=== PATIENT | female | born 1945 | race African-American/Black ===

== ENCOUNTER 2018-10-27 10:25 | Inpatient (IN) ==
[2018-10-27 09:31] LABS: BASO# 0.01 X1000 (0.0-0.2); BASO% 0.2 % (0.0-0.8); EOS# 0.01 X1000 (0.0-0.7); EOS% 0.2 % (0.0-10.0); HEMOGLOBIN 16.4 g/dL (12.0-16.0); IMM GRAN# 0.01 X1000 (0.0-0.04); IMM GRAN% 0.2 % (0.0-0.5); LYMPH# 0.75 X1000 (1.2-3.4); LYMPH% 13.9 % (20.5-51.1); MCH 34.1 PG (27-31); MCHC 34.2 g/dL (33-37); MCV 99.8 FL (81-99); MONO# 0.32 X1000 (0.11-0.59); MONO% 5.9 % (1.7-9.3); MPV 11.1 FL (7.4-10.4); NEUT# 4.31 X1000 (1.4-6.5); NEUT% 79.6 % (42.2-75.2); PLT 410 X1000 (130-400); RBC 4.81 XMIL (4.2-5.4); RDW 13.3 % (11.5-14.5); WBC 5.41 X1000 (4.8-10.8)
--- NOTE | 2018-10-27 10:07 | PROVIDER DOCUMENTATION ---
HPI-Abdominal Pain/GI Problem - General Chief Complaint: Abdominal Pain Stated Complaint: ABD PAIN Time Seen by Provider: 10/27/18 09:10 Source: patient Allergies/Adverse Reactions: Patient Allergies Allergy/AdvReac Type Severity Reaction Status Date / Time No Known Allergies Allergy Verified 10/27/18 09:11 - History of Present Illness-ABD Nature of Presenting Problems: Pt is 72 yo female, states lower abd pain started yesterday and has been constant since then. States vomited x 3-4 times. Denies diarrhea. Last BM was yesterday. Denies fever. No daily meds. No known pmh. Denies f/u/d. Abdominal Pain Onset Location: reports: RLQ (started in RLQ), generalized abdomen (now generalized pain) Severity in ED: reports: severe Onset/Duration: reports: other (yesterday) Timing: reports: still present Review of Systems - Adult - REVIEW OF SYSTEMS - ADULT Constitutional: denies: chills, fever Eyes: reports: no symptoms reported Ears, Nose, Mouth & Throat: reports: no symptoms reported Cardiovascular: reports: no symptoms reported Respiratory: reports: no symptoms reported Gastrointestinal: reports: abdominal pain, nausea, vomiting. denies: diarrhea Genitourinary: reports: no symptoms reported Musculoskeletal: reports: no symptoms reported Integumentary: reports: no symptoms reported Neurological: reports: no symptoms reported Psychiatric: reports: no symptoms reported Endocrine: reports: no symptoms reported Hematologic/Lymphatic: reports: no symptoms reported Allergic/Immunologic: reports: no symptoms reported All Other Systems: Reviewed and Negative Past History - Adult - PAST MEDICAL HISTORY-ADULT Review of Records: reports: Medications Reviewed, Social history reviewed & non- contributory. Physical Exam-General - PHYSICAL EXAM-ADULT Initial Vital Signs Reviewed: Yes (tachycardia, hypotensive) - CONSTITUTIONAL General Appearance: alert, moderate distress - EYES Eyes: PERRL/EOMI, pink conjunctivae - HEAD, EARS, NOSE, MOUTH & THROAT HENMT: normocephalic/atraumatic, moist mucous membranes - NECK Neck: supple - RESPIRATORY Respiratory: lungs clear, decreased breath sounds, increased rate - CARDIOVASCULAR Cardiovascular: no edema, no murmur, tachycardia - GASTROINTESTINAL (ABDOMEN) Abdominal Exam: abnormal bowel sounds (decreased bs), guarding, rigid, tenderness - MUSCULOSKELETAL Peripheral Pulses: radial (R): 2+, radial (L): 2+ - SKIN Integumentary: normal color, normal turgor, warm/dry - NEUROLOGIC Neurologic: grossly normal - PSYCHIATRIC Psych/Mental Status: normal mood/affect, normal thought content, normal thought process, oriented x 3 Progress - PLAN OF CARE/RESULTS Progress/Plan/Lab Results: Vital Signs - 8 hr 10/27/18 09:05 10/27/18 09:50 Temperature 97.6 F Pulse Rate 124 H 109 H Respiratory Rate 18 33 H Blood Pressure 96/64 89/71 O2 Sat by Pulse Oximetry 96 94 L Laboratory Results - last 24 hr 10/27/18 09:22 WBC 5.41 RBC 4.81 Hgb 16.4 H Hct 48.0 H MCV 99.8 H MCH 34.1 H MCHC 34.2 RDW Std Deviation 13.3 Plt Count 410 H MPV 11.1 H Immature Gran % (Auto) 0.2 Neut % (Auto) 79.6 H Lymph % (Auto) 13.9 L Ector % (Auto) 5.9 Eos % (Auto) 0.2 Baso % (Auto) 0.2 Immature Gran # (Auto) 0.01 Neut # (Auto) 4.31 Lymph # (Auto) 0.75 L Ector # (Auto) 0.32 Eos # (Auto) 0.01 Baso # (Auto) 0.01 Orders Category Date Time Status Saline Loc DIRECTED Care 10/27/18 09:12 Active NPO Diet 10/27/18 09:12 Active CHEST-1 VIEW [RAD] Stat Exams 10/27/18 09:[address] ABDOMEN/PELVIS W/O CONTRAST [CT] Stat Exams 10/27/18 09:27 Taken AMYLASE [CHEM] Stat Lab 10/27/18 09:22 Received BLOOD CULTURE [BLDCUL] Stat Lab 10/27/18 09:28 Ordered CBC WITH DIFF [HEME] Stat Lab 10/27/18 09:33 Ordered CBC WITH ELECTRONIC DIFF [HEME] Stat Lab 10/27/18 09:22 Completed CK PROFILE [SP CHEM] Stat Lab 10/27/18 09:33 Ordered COMPREHENSIVE METABOLIC PANEL [CHEM] Stat Lab 10/27/18 09:22 Received LACTATE, PLASMA [CHEM] Q3H Lab 10/27/18 09:45 Uncollected LACTATE, PLASMA [CHEM] Q3H Lab 10/27/18 12:45 Uncollected LACTATE, PLASMA [CHEM] Q3H Lab 10/27/18 15:45 Uncollected LACTATE, PLASMA [CHEM] Stat Lab 10/27/18 09:31 Uncollected LIPASE [CHEM] Stat Lab 10/27/18 09:22 Received PROTIME WITH INR [COAG] Stat Lab 10/27/18 09:33 Ordered PTT [COAG] Stat Lab 10/27/18 09:33 Ordered TROPONIN T Stat Lab 10/27/18 09:33 Ordered TYPE & SCREEN [BBK] Stat Lab 10/27/18 09:22 Received UA NIMS W/REFLEX CULT PL [URINALYSIS] Stat Lab 10/27/18 09:[address] W/POSS RFLX CULT [URINALYSIS] Stat Lab 10/27/18 09:12 Uncollected 0.9% Sodium Chloride Inj [Ns] 1,000 ml Med 10/27/18 09:28 Active IV 999 mls/hr 0.9% Sodium Chloride Inj [Ns] 500 ml Med 10/27/18 09:28 Discontinued IV 999 mls/hr Lactated Ringers Inj [Lr] 1,000 ml Med 10/27/18 09:26 Active IV 999 mls/hr Morphine Med 10/27/18 09:25 Discontinued 4 mg IV NOW ONE Ondansetron [Zofran] Med 10/27/18 09:25 Discontinued 4 mg IV NOW ONE Piperacillin/Tazobactam [Zosyn] 4.5 gm Med 10/27/18 09:28 Active 0.9% Sodium Chloride Inj [Ns] 100 ml IV NOW EKG [EKG] Stat Ther 10/27/18 09:29 Ordered d/w Dr. Richard, in to see pt, agrees with plan. radiologist called with verbal report of free air and ascites on CT. Dr. Richard d/w Dr. Slater and admitted to hospitalist. Result Diagrams: 10/27/18 09:22 - REASSESSMENT Reassessment #1 Time Reassessed: 10:16 Status: improving (but still hurting. Will administer additional morphine for ambulance ride) Departure - Departure Date of Disposition Decision: 10/27/18 Time of Disposition Decision: 10:07 DIAGNOSIS: Perforated abdominal viscus Disposition: ADMITTED INPATIENT 09 Certified Medical Emergency: Emergent Condition: Critical Referrals and Follow-Ups: None,PCP [Primary Care Provider] - - Critical Care Note This patient required my direct & personal management of CC.: Yes Total Time (mins): 35 (multiple visists to bedside, discussions with 3 separate physicians, management of shock and sepsis.) Critical Care Statement: This patient required my direct personal management to treat or rule out processes, the absence of which, could potentiallly result in sudden, clinically significant life or limb threatening deterioration. Attestation - Physician/ ELOISE Attestation Advanced Practice Provider:: Roseline Robledo The physician spent face to face time with patient:: Yes Advanced Practice Provider documentation review:: Supervising physician onsite and consulted in the evaluation and care of this patient. The physician did have a face to face encounter with the patient.
--- NOTE | 2018-10-27 10:08 | Diag Imaging Result Doc PS360 ---
EXAM: CT ABDOMEN/PELVIS W/O CONTRAST HISTORY: lower abdominal pain/tenderness TECHNIQUE: Stone search CT. COMPARISON: None. FINDINGS: Evaluation of the solid visceral organs and bowel is limited by lack of enteric and IV contrast. There is moderate ascites and pneumoperitoneum. This is consistent with hollow viscus perforation. There is moderate soft tissue stranding adjacent to the stomach and perforated peptic ulcer is considered. Bilateral pleural effusions and bibasilar airspace disease. There is cholelithiasis. There is atherosclerotic calcification within the aorta and major branches. No hydronephrosis. Punctate left nephrolithiasis There is diverticulosis. No evidence for diverticulitis. No small bowel distention. Normal appendix. Uterus is surgically absent. Marked degenerative arthropathy lumbar spine with spondylolisthesis of L4 on L5. No compression deformities are appreciated. This report was discussed with Dr. Richard at 10:00am ead back verification. IMPRESSION: 1.Moderate pneumoperitoneum. Concentration within the upper abdomen. Consider perforated peptic ulcer. 2.Moderate free fluid within the abdomen. 3.Exam limited by lack of IV and oral contrast. 4.Cholelithiasis. This exam was performed using automated exposure control, adjustment of mA or kV according to patient size, and/or use of iterative reconstruction technique. Electronically signed by Khadijah Nice 10/27/2018 10:06 AM
--- NOTE | 2018-10-27 10:14 | Diag Imaging Result Doc PS360 ---
EXAM: CHEST-1 VIEW HISTORY: possible sepsis TECHNIQUE: PA and Lateral chest x-ray COMPARISON: None. FINDINGS: Lung volumes are reduced with bibasilar atelectasis. There is gas beneath the right hemidiaphragm shown to represent pneumoperitoneum on recent CT. The cardiomediastinal silhouette is within normal limits. The pulmonary vasculature is not congested. No pneumothorax is appreciated. IMPRESSION: Pneumoperitoneum. Reduced lung volumes. Bibasilar atelectasis. This report was discussed with on 10/27/2018 at 10:00 AM with read back verification. Electronically signed by Khadijah Nice 10/27/2018 10:11 AM
[~2018-10-27 10:25] MED LIST: DILAUDID IV PRN; LEVOPHED 8 MG in D5 1/2 NS 250 ML IV SCH; LR 1,000 ML IV ONE; MORPHINE IV ONE; NS 1,000 ML IV ONE; NS 1,000 ML IV SCH; NS 500 ML IV ONE; VANCOMYCIN IV PER PHARMACY MISC SCH; ZOFRAN IV ONE; ZOSYN 4.5 GM in NS 100 ML IV ONE
[2018-10-27 10:32] LABS: ALBUMIN 4.2 g/dL (3.5-5.0); CALCIUM 9.5 mg/dL (8.8-10.2); CREATININE 2.7 mg/dL (0.5-0.9); POTASSIUM 2.7 mmol/L (3.5-5.1); TOTAL BILIRUBIN 0.9 mg/dL (0.20-1.00); TOTAL PROTEIN 7.4 g/dL (6.3-8.3)
[2018-10-27 10:34] LABS: BASO# 0.01 X1000 (0.0-0.2); BASO% 0.2 % (0.0-0.8); EOS# 0.01 X1000 (0.0-0.7); EOS% 0.2 % (0.0-10.0); HEMATOCRIT 48.8 % (37.0-47.0); HEMOGLOBIN 16.3 g/dL (12.0-16.0); IMM GRAN# 0.01 X1000 (0.0-0.04); IMM GRAN% 0.2 % (0.0-0.5); LYMPH# 0.58 X1000 (1.2-3.4); LYMPH% 12.5 % (20.5-51.1); MCH 33.5 PG (27-31); MCHC 33.4 g/dL (33-37); MCV 100.2 FL (81-99); MONO# 0.31 X1000 (0.11-0.59); MONO% 6.7 % (1.7-9.3); NEUT# 3.72 X1000 (1.4-6.5); NEUT% 80.2 % (42.2-75.2); PLT 374 X1000 (130-400); RBC 4.87 XMIL (4.2-5.4); RDW 13.2 % (11.5-14.5); WBC 4.64 X1000 (4.8-10.8)
[2018-10-27 10:40] LABS: INR 1.13; PROTIME 15.1 Seconds (11.0-16.0)
[2018-10-27 10:41] LABS: PTT 29.7 Seconds (22.3-41.8)
[2018-10-27] MEDS ORDERED: VANCOMYCIN IV PER PHARMACY MISC SCH (10:45)
[2018-10-27] MEDS ORDERED: DILAUDID IV PRN (10:57)
--- NOTE | 2018-10-27 11:09 | HISTORY AND PHYSICAL ---
PRIMARY CARE PHYSICIAN: None. CHIEF COMPLAINT: Generalized abdominal pain that began yesterday. Also, she had vomiting 3 to 4 times but no diarrhea. HISTORY OF PRESENTING ILLNESS: This is a 72-year-old female who presents to [facility] ER with complaints of generalized abdominal pain that began yesterday. She states that she has had vomiting 3 to 4 times, but no diarrhea. Workup in the emergency room showed an abdomen and pelvic CT with findings of moderate ascites and pneumoperitoneum. This is consistent with a hollow viscus perforation, moderate soft tissue stranding adjacent to the stomach and perforated peptic ulcer is considered. There is also cholelithiasis so she will be admitted to the intensive care unit at [facility], but patient will first go to surgery via Dr. Slater, general surgeon today. Then, she will be admitted after her surgical case. PAST MEDICAL HISTORY: None. PAST SURGICAL HISTORY: Hysterectomy and a right hand surgery. FAMILY HISTORY: Reviewed and noncontributory. SOCIAL HISTORY: She currently lives with her . Denies any tobacco, alcohol or illicit drug use. ALLERGIES: No known drug allergies. HOME MEDICATIONS: She does not take any medications on a routine basis at this time. LABORATORY DATA: White blood cell count of 5.41, hemoglobin 16.4, hematocrit 48 and platelets 410,000. Chest x-ray showed pneumoperitoneum reduced lung volumes, and bibasilar atelectasis. CT of the abdomen and pelvis showed an impression of 1) moderate pneumoperitoneum concentration within the upper abdomen. Consider perforated peptic ulcer. 2) Moderate free fluid within the abdomen. 3) Cholelithiasis. Pending labs at this moment include an amylase, CK profile, CMP, plasma lactate, lipase, PT with INR, PTT, troponin, type and screen and a urinalysis with reflex. They have all been received but are pending in the lab at this time. REVIEW OF SYSTEMS: She denied any fever, chills, blurred vision, or dizziness. She denied any chest pain, coughing, shortness of breath. She was positive for generalized abdominal pain, and vomiting times 3 to 4 yesterday and today with nausea. Denied any constipation. She states her last bowel movement was yesterday. Denied any diarrhea. Denied any burning or hurting with urination. PHYSICAL EXAMINATION: VITAL SIGNS: On arrival, temperature 97.6 degrees, pulse 124, respirations 18, blood pressure 96/64, and saturating 96% on room air. Currently, blood pressure is up to 150/87 and has received a total of 1 L of LR and 1 L of normal saline. HEENT: Normocephalic, atraumatic. Normal ENT inspection. Oropharynx and nares are clear. Eyes: Pupils are equal, round, reactive to light and accommodation. Extraocular movements are intact. NECK: Normal inspection. Normal range of motion. LUNGS: Clear to auscultation bilaterally with equal lung expansion and chest wall movement. HEART: Regular rate and rhythm. No murmurs, rubs, or gallops. She was noted to be tachycardic on arrival. This has improved after fluid resuscitation. ABDOMEN: Firm distended, rigid, tender to touch with guarding. Absent bowel sounds are noted at this time x4 quadrants. MUSCULOSKELETAL: She has 5/5 strength x4 extremities. NEUROLOGICAL: Cranial nerves 2-12 appear grossly intact. ASSESSMENT: 1. Moderate pneumoperitoneum. 2. Perforated abdomen viscus most likely a peptic ulcer perforation. 3. Hypotension. PLAN: She is being transferred to the [facility]. We will go directly to surgery via Dr. Slater. She then will be admitted to the intensive care unit. Held NPO. Labs as stated earlier are still pending. She has got Dilaudid 1 mg IV q.3 hours p.r.n. She was given a dose of this while I was at the bedside. She has a Levophed infusing per protocol for her hypotension, meropenem 1 gram IV q. 8. After her boluses have infused, she will have normal saline at 125 mL an hour. Further orders after seen by attending and by the surgery consultant, and status post her surgery. Dictated by MAREK Gaming for Manuel Cramer MD Addendum: Patient seen and examined by myself. Agree with MAREK note. It reflects my assessment and plan. Patient is being admitted to hospital for abdominal pain and ER found out she has pneumoperitoneum so Surgery was consulted and they recommend admit this patient under hospitalist service and transfer this patient urgently to [facility] for surgical intervention. Will place her on antibiotics and vasopressors and after surgery she will go to ICU. cc: MAREK Gaming, MD [facility]
[2018-10-27] MEDS ORDERED: QUELICIN (DOSE) ONE (11:55)
[2018-10-27] MEDS ORDERED: ZOFRAN ONE (11:55)
[2018-10-27] MEDS ORDERED: FENTANYL ONE (11:55)
[2018-10-27] MEDS ORDERED: SODIUM CHLORIDE 0.9% 10 ML ONE (11:55)
[2018-10-27] MEDS ORDERED: NORCURON ONE (11:55)
[2018-10-27] MEDS ORDERED: XYLOCAINE-MPF 2% ONE (11:55)
--- NOTE | 2018-10-27 12:33 | HISTORY AND PHYSICAL ---
HISTORY OF PRESENT ILLNESS: Ms Sandi Cadet is a 72-year-old black female, who presented to [facility] with a 24-hour history of abdominal pain. She describes the pain as diffuse and severe. It began yesterday. She underwent a CT scan of her abdomen and pelvis as part of her evaluation that documented free air and fluid intra-abdominally, and she was transferred from [facility] to [facility] for surgical care. PAST MEDICAL HISTORY: She has had surgery on her right hand. She has otherwise been healthy. MEDICATIONS: None. ALLERGIES: None. SOCIAL HISTORY: She is retired. Her daughter works in our hospital system. She does not smoke or drink. REVIEW OF SYSTEMS: A 14-point review of systems was performed and was essentially negative except for the history of present illness. FAMILY HISTORY: Noncontributory. PHYSICAL EXAMINATION: GENERAL: Ms. Cadet is tachycardic. She has an acute abdomen. HEENT: No jaundice. No oral lesions. NECK: No cervical or supraclavicular lymphadenopathy. HEART: Her heart has a regular rate. LUNGS: Clear. GASTROINTESTINAL: Her abdomen was tightly distended and tender throughout. She had no evidence of hernia. No palpable mass. No previous scar. MUSCULOSKELETAL: She had bilateral costovertebral tenderness. RECTAL AND VAGINAL: Exams were not performed. EXTREMITIES: She does have palpable peripheral pulses. No peripheral edema. NEUROLOGICAL: She is awake and alert with no focal deficit. DIAGNOSTIC STUDIES: I reviewed the CT scan with our radiologist, Dr. Antonio Saenz. It does not appear that she had a significant amount of diverticulitis. She does have free air and fluid. The etiology of her ruptured bowel is unclear. IMPRESSION: Acute abdomen with ruptured viscus. PLAN: Urgent exploratory laparotomy with indicated procedures. I discussed it with the patient's daughter in holding. She understands this is major surgery and it is urgent and the patient may require an ostomy bag and hospitalization in the ICU. cc: Sarah Slater MD
[2018-10-27] MEDS ORDERED: DEPO-MEDROL ONE (13:00)
[2018-10-27] MEDS: MORPHINE ONE ×5 (13:55→14:44)
--- NOTE | 2018-10-27 14:09 | OPERATIVE NOTE ---
PROCEDURE DATE: 10/27/2018 PREOPERATIVE DIAGNOSIS: Acute abdomen. POSTOPERATIVE DIAGNOSIS: Perforated duodenal ulcer. PRINCIPAL PROCEDURE: Open Simba patch repair of perforated duodenal ulcer. SURGEON: Sarah Slater MD. ANESTHESIA: General. ESTIMATED BLOOD LOSS: 100 mL. DRAINS: None. INDICATIONS: Sandi Cadet is a 72-year-old, black female who has a 12-hour history of abdominal pain. She presented to [facility]. As part of her evaluation, she underwent a CT scan of her abdomen and pelvis which documented free air and free fluid intra- abdominally. She was sent to [facility] for surgical care. FINDINGS: She had gross intra-abdominal contamination of stomach and duodenal contents. She had a fairly large perforated anterior duodenal ulcer involving the duodenal bulb. We performed a Simba patch closure of this ulcer using a flap of greater omentum and then we took a lot of time to irrigate the abdomen thoroughly to remove all intra-abdominal contamination. DESCRIPTION OF PROCEDURE: The patient was brought to the operating room, placed supine, received general anesthesia, and was intubated. Her abdomen was prepped and draped within a sterile field. We used an Ioban on the skin. Initially, I made a periumbilical incision with a 15 blade scalpel. It was carried down through the skin and subcutaneous tissue to the midline fascia, which we incised using the cautery and carefully entered the abdomen. As we entered the abdomen, there was no foul smell of the free intra-abdominal fluid, which there was a lot of. It was green and thick. We felt this represented more of a perforation in the upper abdomen than in the lower abdomen. We extended this incision into an upper midline incision using the 10 blade scalpel and the cautery. I used a Fadumo for self-retaining retraction. I also had handheld retraction. We identified the perforated anterior duodenal ulcer. It measured about 1 cm big. There was gross intra-abdominal contamination which we removed using suction. I closed this ulcer using a Simba patch. I used 2-0 silk stitches and placed the stitch on either side of the ulcer. I used three stitches along the ulcer's length transversely. Then I placed this apron of omentum which I created using the LigaSure. I placed it over the perforated ulcer. Then I tied the 2-0 silk ties over the omentum so that it was held against the perforated ulcer as described as a Simba patch. I placed two other 2-0 silk stitches on either edge of the omentum, again just to further tack it down against the ulcer. We felt there was no leakage from the ulcer with this Simba patch. We were happy that the fat was viable and was secured against the ulcer. We took a lot of time to thoroughly irrigate the abdomen, all four quadrants, with warm irrigation and the warm irrigation was removed with suction. We placed the bowel back in an anatomically correct position. The NG tube was checked and its position in the stomach was satisfactory. I used internal #1 Vicryl stitches, approximately five along the length of the midline wound. I closed the fascia with a running #1 Maxon stitch and then I tied these internal retention Vicryl sutures over the closed midline fascia for extra support of closure. I thoroughly irrigated the midline wound and closed the skin with a skin clip bond clerk, and dressings were applied. Plans are for her to go to the ICU with an NG tube in place and also a Paz catheter tube in place for ongoing resuscitation and critical care. cc: Sarah Slater MD
[2018-10-27] MEDS ORDERED: NS 1,000 ML ONE (14:55)
[2018-10-27] MEDS ORDERED: OFIRMEV 1000 MG/ISOTONIC SOLN 1,000 MG/100 ML BOTTLE ONE (15:45)
[2018-10-27] MEDS: MERREM 1 GM in NS 50 ML IV SCH ×2 (16:42→17:48)
[2018-10-27] MEDS: NS 1,000 ML IV SCH ×2 (16:43→18:17)
[2018-10-27] MEDS ORDERED: MORPHINE IV PRN (16:44)
[2018-10-27] MEDS ORDERED: SODIUM CHLORIDE 0.9% INJ PRN (16:47)
[2018-10-27] MEDS ORDERED: PHENERGAN IV PRN (16:47)
[2018-10-27 17:16] LABS: URINE SOURCE CATH
[2018-10-27 17:18] LABS: BILIRUBIN URINE NEGATIVE (NEGATIVE); BLOOD URINE MODERATE (NEGATIVE); COLOR STRAW; GLUCOSE URINE TRACE mg/dL (NEGATIVE); KETONE URINE NEGATIVE (NEGATIVE); LEUKOCYTES URINE NEGATIVE (NEGATIVE); NITRITE URINE NEGATIVE (NEGATIVE); PROTEIN URINE 30 mg/dL (NEGATIVE); SP GRAVITY URINE 1.007; TURBIDITY URINE CLEAR (CLEAR); UR EPITHELIAL CELLS <10 /HPF (<10); URINE BACTERIA NEGATIVE /HPF; URINE RBC <10 /HPF (<10); URINE WBC <10 /HPF (<10); UROBILINOGEN URINE NORMAL (NORMAL)
[2018-10-27] MEDS: OFIRMEV 1000 MG/ISOTONIC SOLN 1,000 MG/100 ML BOTTLE IV SCH ×2 (17:40→23:02)
[2018-10-27] MEDS: NEXIUM IV SCH (17:54)
[2018-10-27] MEDS: DIPRIVAN 1% 1,000 MG/100 ML BOTTLE IV SCH (18:24)
[2018-10-27] MEDS: KEFZOL 1 GM/D5W 1 GM/50 ML IVPB IV SCH (20:02)
[2018-10-27] MEDS: LEVOPHED 8 MG in D5 1/2 NS 250 ML IV SCH (22:00)
--- NOTE | 2018-10-27 22:15 | PULMONOLOGY CONSULTATION ---
DATE: 10/27/2018 REQUESTING PHYSICIAN: Dr. Bakari Slater. REASON FOR CONSULTATION: Critically ill patient following surgical repair of a perforated ulcer. HISTORY OF PRESENT ILLNESS: Ms. Cadet is a 72-year-old white female with no chronic medical history listed and no chronic medications, who presented to [facility] Emergency Room with a greater than 12 hour history of abdominal pain with nausea and vomiting. The patient had evidence of peritonitis on clinical exam. CT scan of the abdomen and pelvis revealed a pneumoperitoneum with free fluid in the abdomen and cholelithiasis. The patient was transferred to the [facility] and was taken to the operating room by Dr. Slater. The patient did receive volume resuscitation today equaling almost 8 L. In the operating room, Dr. Slater found a perforated duodenal ulcer with intra-abdominal contamination of gastric and duodenal contents. A Simba patch repair of the duodenal ulcer was performed and extensive irrigation of the abdominal cavity followed. The patient is now transferred back to the ICU on mechanical ventilation. PAST MEDICAL HISTORY: 1. Hysterectomy. 2. Status post right hand surgery. 3. No chronic medical history/medications. SOCIAL HISTORY: No tobacco use. Nursing intake reports rare alcohol use. FAMILY HISTORY: Noncontributory to current presentation. REVIEW OF SYSTEMS: Cannot be obtained. PHYSICAL EXAMINATION: General: Reveals a well-developed, well-nourished female, who appears in slight pain on mechanical ventilation. Vital signs: Blood pressure 90/60, heart rate 117, respiratory rate 15, oxygen saturation 98%. HEENT: Pupils are equal and reactive. Oropharynx appears clear. Neck: Supple. Chest: Reveals crackles bilaterally. Cardiac Exam: S1-S2. Abdomen: Soft with surgical dressings in place. Extremities: Reveal trace to 1+ peripheral edema. LABORATORIES: Sodium 145, potassium 2.7, chloride 100, bicarbonate 16, anion gap 29, BUN 24, creatinine 2.7, glucose 306. Amylase 170, lipase 468. White blood count 4.64, hemoglobin 16.3, platelet count 374,000. Chest x-ray reveals pneumoperitoneum with bibasilar atelectasis. IMPRESSION: Relatively healthy 72-year-old female who presents to the hospital with duodenal perforation. She has had abdominal pain for a prolonged period of time. She had gross contamination of the abdomen. She has peritonitis. She has acute renal failure. She has acute hypoxemic respiratory failure. She has relative leukopenia given her illness. Her blood pressure is marginal and she has received significant resuscitation. RECOMMENDATIONS: 1. Continue full ventilatory support. She has had significant resuscitation and may require vasopressors. 2. Continue Zosyn for gross contamination of the abdomen. 3. Continue gastric acid suppression. 4. We will initiate sliding scale insulin. The patient did have a glucose over 300 in the emergency room. 5. Agree with deep vein thrombosis prophylaxis. 6. Additional recommendations pending hospital course. TIME SPENT WITH CRITICAL CARE: One hour. cc: MD Sarah Judd MD
[2018-10-27] MEDS: HUMULIN R SUBQ SCH (22:27)
[2018-10-27] MEDS: ZOSYN 2.25 GM in NS 50 ML IV SCH (23:01)
[2018-10-28] MEDS: NS 1,000 ML IV SCH ×3 (01:22→12:53)
[2018-10-28] MEDS: HUMULIN R SUBQ SCH ×6 (01:42→22:01)
[2018-10-28] MEDS: KEFZOL 1 GM/D5W 1 GM/50 ML IVPB IV SCH (01:44)
[2018-10-28 04:40] LABS: ALLEN TEST YES; BE -3.8 mmoll (-3.0-3.0); BLOOD TYPE ARTERIAL; HCO3-(ACT) 21.9 mmoll (20.0-26.0); METHB 1.8 % (0.0-1.5); O2HB 95.2 % (95.0-99.0); PCO2(98.6) 26 mmHg (35-45); PO2(98.6) 118 mmHg (60-100); SAMPLE BLOOD; SAO2 98.7 % (95.0-100.0); SRATE 15 BPM; THB 13.3 g/dL (11.5-17.4); TVOL 600 mL; pH(98.6) 7.46 (7.35-7.45)
[2018-10-28 04:43] LABS: MODALITY VENTILATOR
[2018-10-28] MEDS: SODIUM CHLORIDE 0.9% INJ SCH (04:44)
[2018-10-28] MEDS: NEXIUM IV SCH ×2 (04:45→17:18)
[2018-10-28] MEDS: ZOSYN 2.25 GM in NS 50 ML IV SCH ×4 (04:45→23:15)
[2018-10-28] MEDS: OFIRMEV 1000 MG/ISOTONIC SOLN 1,000 MG/100 ML BOTTLE IV SCH ×4 (04:46→23:16)
[2018-10-28 05:45] LABS: BASO# 0.03 X1000 (0.0-0.2); BASO% 0.3 % (0.0-0.8); EOS# 0.17 X1000 (0.0-0.7); EOS% 1.9 % (0.0-10.0); HEMOGLOBIN 13.7 g/dL (12.0-16.0); IMM GRAN# 0.06 X1000 (0.0-0.04); IMM GRAN% 0.7 % (0.0-0.5); LYMPH# 1.59 X1000 (1.2-3.4); LYMPH% 18.1 % (20.5-51.1); MCH 33.7 PG (27-31); MCHC 35.1 g/dL (33-37); MCV 96.1 FL (81-99); MONO# 0.35 X1000 (0.11-0.59); MPV 11.9 FL (7.4-10.4); NEUT# 6.58 X1000 (1.4-6.5); PLT 227 X1000 (130-400); RBC 4.06 XMIL (4.2-5.4); RDW 12.7 % (11.5-14.5); WBC 8.78 X1000 (4.8-10.8)
[2018-10-28 06:04] LABS: PHOSPHORUS 3.2 mg/dL (2.7-4.5)
[2018-10-28 06:06] LABS: ALB/GLOB RATIO 0.7; CALCIUM 7.6 mg/dL (8.8-10.2); CREATININE 3.3 mg/dL (0.5-0.9); POTASSIUM 3.5 mmol/L (3.5-5.1); TOTAL BILIRUBIN 0.51 mg/dL (0.20-1.00)
[2018-10-28] MEDS: DIPRIVAN 1% 1,000 MG/100 ML BOTTLE IV SCH ×3 (06:38→20:04)
[2018-10-28] MEDS ORDERED: MAGNESIUM SULFATE 2 GM/S.W.I. 2 GM/50 ML IVPB IV ONE (06:57)
--- NOTE | 2018-10-28 06:59 | Diag Imaging Result Doc PS360 ---
EXAM: CHEST-PORTABLE 10/28/2018 HISTORY: respiratory failure TECHNIQUE: AP portable at 0535 COMMENT: There is an endotracheal tube with its tip slightly below the thoracic inlet and an NG tube which passes below the diaphragm presumably into the distal stomach or duodenum. There is retrocardiac opacity which was not present on 10/27/2018. There is platelike atelectasis in the lingula which was previously present. IMPRESSION: Worsened atelectasis versus pneumonia particularly in the left lower lobe. Electronically signed by Jose Ledbetter 10/28/2018 6:57 AM
--- NOTE | 2018-10-28 07:30 | PROGRESS NOTE ---
DATE: 10/28/2018 SUBJECTIVE: Ms Sandi Cadet is a 72-year-old, black female who is now postop day 1 from Simba patch closure of a perforated duodenal ulcer. She had gross intra-abdominal contamination at the time of surgery. After surgery, she remained intubated and now is hospitalized in the ICU. She is awake but she has made no urine overnight. She has an NG tube and Paz catheter in place. OBJECTIVE: Her heart rate is 119, blood pressure 108/89, O2 saturation 99% and she is on the ventilator minimal settings. She is on assist control of 15, 40% FiO2, 600 tidal volume +5 of PEEP. Her arterial blood gas is pH of 7.46, CO2 of 26, PaO2 of 118. She has a base deficit of 3.8 and a lactate of 3.4. Chest x-ray shows atelectasis left lower lobe. Her white blood cell count 8, hematocrit is 39%. Her BUN and creatinine are 33 and 3.3 and that is elevated from 24 and 2.5. She has not had much out of her NG tube. Her upper midline incision is dressed. Her abdomen is distended but not tightly so, and she is awake and cooperative. She has required IV Levophed to support her blood pressure overnight. She is on IV Zosyn because of intra-abdominal contamination. PLAN: She is in acute renal failure without making any urine. We will decrease her IV fluids. She is already on renal dose Zosyn. We will try to wean her Levophed. Her ventilator per Dr. Engle. We will leave her NG tube in place and Paz catheter. She is on IV Nexium. cc: Sarah Slater MD
[2018-10-28] MEDS: LOVENOX SUBQ SCH (08:31)
[2018-10-28 13:25] LABS: CALCIUM 7.4 mg/dL (8.8-10.2); CREATININE 3.2 mg/dL (0.5-0.9); MAGNESIUM 1.7 mg/dL (1.5-2.7)
[2018-10-28] MEDS ORDERED: D50W SYRINGE IV ONE (13:42)
[2018-10-28] MEDS ORDERED: HUMULIN R SUBQ ONE (13:43)
[2018-10-28] MEDS: LEVOPHED 8 MG in D5 1/2 NS 250 ML IV SCH (15:30)
--- NOTE | 2018-10-28 18:20 | PULMONOLOGY PROGRESS NOTE ---
DATE: 10/28/2018 SUBJECTIVE: The patient's sedation was placed on hold. She does follow commands. She does start to breathe in a rapid shallow manner due to pain and weakness. OBJECTIVE: Vital signs: The patient is afebrile for the last 24 hours. Blood pressure 99/70, heart rate 114 respiratory rate 15, oxygen saturation 99%. HEENT: Pupils are equal and reactive. Oropharynx appears clear, but evaluation is limited with endotracheal tube in place. Neck: Is supple. Chest: Reveals crackles bilaterally. Cardiac exam: S1, S2. Abdomen: Mildly distended and tender. Extremities: Without edema. LABORATORIES: Chest x-ray reveals atelectasis at the left base. White blood count 8.78, hemoglobin 13.7, platelet count 227,000. Sodium 142, potassium 3.5, chloride 107, bicarbonate 17, BUN 33, creatinine 3.3, magnesium 1.0. Arterial blood gas reveals a pH 7.46, pCO2 of 26, PO2 of 118 with a lactate of 3.4. IMPRESSION: 1. A 72-year-old with acute hypoxemic respiratory failure. 2. Septic shock. 3. Status post repair of a perforated duodenal ulcer with gross intra-abdominal contamination. 4. Acute renal failure. DISCUSSION: A 72-year-old with problems outlined above. She has failed a weaning trial this morning. Her ventilatory support will be restarted and she will be re-evaluated for weaning again tomorrow morning. The case was discussed with her . He is aware that she may require hemodialysis given the acute renal failure. PLAN: 1. Continue full ventilatory support and re-evaluate weaning tomorrow. 2. Continue broad-spectrum antibiotics. 3. Continue vasopressor support. 4. Continue gastric acid suppression. 5. Continue deep vein thrombosis prophylax. TIME SPENT IN CRITICAL CARE MANAGEMENT: 30+ minutes. cc: MD Sarah Judd MD
[2018-10-29] MEDS: NS 1,000 ML IV SCH (02:02)
[2018-10-29] MEDS: HUMULIN R SUBQ SCH ×6 (02:02→20:49)
[2018-10-29] MEDS ORDERED: D50W SYRINGE IV ONE ×2 (02:12→08:00)
[2018-10-29] MEDS: DIPRIVAN 1% 1,000 MG/100 ML BOTTLE IV SCH (03:20)
[2018-10-29 04:25] LABS: ALLEN TEST YES; BE -7.3 mmoll (-3.0-3.0); BLOOD TYPE ARTERIAL; HCO3-(ACT) 19.2 mmoll (20.0-26.0); METHB 1.1 % (0.0-1.5); O2HB 97.1 % (95.0-99.0); PCO2(98.6) 29 mmHg (35-45); PO2(98.6) 119 mmHg (60-100); SAMPLE BLOOD; SAO2 99.7 % (95.0-100.0); SRATE 12 BPM; THB 12.3 g/dL (11.5-17.4); TVOL 600 mL; pH(98.6) 7.37 (7.35-7.45)
[2018-10-29 04:26] LABS: MODALITY VENTILATOR
[2018-10-29] MEDS: ZOSYN 2.25 GM in NS 50 ML IV SCH ×4 (05:26→22:49)
[2018-10-29] MEDS: OFIRMEV 1000 MG/ISOTONIC SOLN 1,000 MG/100 ML BOTTLE IV SCH ×4 (05:27→22:49)
[2018-10-29] MEDS: NEXIUM IV SCH ×2 (05:29→17:04)
[2018-10-29 06:15] LABS: HEMATOCRIT 35.1 % (37.0-47.0); MCH 34.1 PG (27-31); MCHC 34.2 g/dL (33-37); MCV 99.7 FL (81-99); MPV 11.9 FL (7.4-10.4); RBC 3.52 XMIL (4.2-5.4); RDW 13.3 % (11.5-14.5); WBC 10.37 X1000 (4.8-10.8)
[2018-10-29 06:56] LABS: ALB/GLOB RATIO 0.4; ALBUMIN 1.5 g/dL (3.5-5.0); CALCIUM 7.3 mg/dL (8.8-10.2); CREATININE 4.2 mg/dL (0.5-0.9); TOTAL BILIRUBIN 0.43 mg/dL (0.20-1.00)
--- NOTE | 2018-10-29 07:11 | Diag Imaging Result Doc PS360 ---
EXAM: CHEST-PORTABLE 10/29/2018 HISTORY: respiratory failure TECHNIQUE: AP portable at 0532 COMMENT: There is an endotracheal tube with its tip slightly below the thoracic inlet. There is a NG tube with its tip in the stomach. There is some bibasilar opacity particularly in the left lower lobe. This was also present on 10/28/2018. There is platelike atelectasis in the lingula. IMPRESSION: Bibasilar atelectasis. Atelectasis versus pneumonia left lower lobe. Electronically signed by Jose Ledbetter 10/29/2018 7:08 AM
--- NOTE | 2018-10-29 07:57 | PROGRESS NOTE ---
DATE: 10/29/2018 SUBJECTIVE: Ms. Sandi Cadet is now postop day 2 from Simba patch closure of a perforated duodenal ulcer. Since surgery, she has been intubated and hospitalized in our ICU. She has required norepinephrine IV to maintain her blood pressure. She made no urine yesterday. She is making about 20 mL of urine today per hour, but her creatinine continues to go up. She is sedated but awakens. Her abdomen is distended but not tightly so. She still has an NG tube and Paz catheter tube in. OBJECTIVE: Her heart rate is 93, blood pressure 120/74. The norepinephrine has been able to be weaned down. She is on the ventilator, minimal settings of assist control of 12, 40% FiO2, 600 tidal volume and +5 of PEEP. Her blood gas is 7.37 pH, CO2 is 29, PaO2 is 119. Her base deficit is 7.3, and her lactate is 2.6. Chest x-ray shows bibasilar atelectasis. Her white blood cell count is 10, hematocrit is 35%. She is on IV Zosyn because of gross intra-abdominal contamination. She has been afebrile. PLAN: We will ask Nephrology to see her because of her renal failure. We will continue NG tube suction and IV antibiotics. Ventilator per Dr. Engle. cc: Sarah Slater MD
[2018-10-29] MEDS: LOVENOX SUBQ SCH (08:21)
[2018-10-29] MEDS: D5 1/2 NS 1,000 ML IV SCH ×2 (08:22→22:49)
[2018-10-29 09:55] LABS: BLOOD TYPE ARTERIAL; SAMPLE BLOOD
[2018-10-29 09:56] LABS: ALLEN TEST YES; BE -8.2 mmoll (-3.0-3.0); HCO3-(ACT) 18.5 mmoll (20.0-26.0); METHB 1.2 % (0.0-1.5); MODALITY VENTILATOR; O2(CT) 15.4 mL/dL (15.0-23.0); O2HB 96.1 % (95.0-99.0); PCO2(98.6) 33 mmHg (35-45); PO2(98.6) 95 mmHg (60-100); SAO2 98.6 % (95.0-100.0); THB 11.3 g/dL (11.5-17.4); pH(98.6) 7.32 (7.35-7.45)
--- NOTE | 2018-10-29 13:22 | PULMONOLOGY PROGRESS NOTE ---
DATE: 10/29/2018 SUBJECTIVE: The patient is arousable. She will follow commands. OBJECTIVE: The patient has been afebrile for the last 24 hours. She remains on Levophed, but it has decreased from yesterday. BP 128/67, heart rate 88, respiratory rate 21, oxygen saturation 99%. HEENT pupils are equal and reactive. Oropharynx appears clear with endotracheal tube in place. Chest reveals occasional rhonchi bilaterally. Cardiac exam: S1, S2. Abdomen is soft. Mild tenderness on exam. Extremities: Reveal trace edema. LABORATORIES: Chest x-ray reveals bibasilar infiltrates without change. White blood count 10.37, hemoglobin 12.0, platelet count 172,000. Arterial blood gas pH 7.37, pCO2 of 29, PO2 of 119 with a lactate of 2.6. Sodium 140, potassium 4.0, chloride 106, bicarbonate 15, BUN 42, creatinine 4.2, glucose is 74. IMPRESSION: 72-year-old with 1. Acute hypoxemic respiratory failure. 2. Septic shock. 3. Acute renal failure. 4. Peritonitis status post repair of a perforated duodenal ulcer with gross intra-abdominal contamination. PLAN: 1. Initiate spontaneous breathing trial to evaluate potential for extubation. 2. Wean vasopressors support as tolerated. 3. Continue broad-spectrum antibiotics. 4. Anticipate nephrology consultation for acute renal failure. TIME SPENT: Critical care management 30+ minutes. cc: MD Sarah Judd MD
--- NOTE | 2018-10-29 13:58 | NEPHROLOGY CONSULTATION ---
DATE: 10/29/2018 ATTENDING PHYSICIAN: Dr. Slater. CONSULTING PHYSICIAN: Dr. Slater. REASON FOR CONSULTATION: Acute kidney injury. HISTORY OF PRESENT ILLNESS: Ms. Cadet is a 72-year-old, black female who was admitted to the hospital on the with an acute abdomen. Anterior perforated ulcer that required surgical remediation by Dr. Slater on the . She has been on the ventilator since that time until this morning. She is extubated at the time of my exam, and she will look at me and nod but does not verbalize. She tolerated her surgery without difficulty. Modest hypotension is documented with systolic blood pressure as low as 78 but more typically in the 80s. She did require Levophed though this medication has now been discontinued. Urine output has been low and she has been in positive fluid balance of 12 L, but urine output seems to be improving this morning. Blood pressure is improved and she is off the norepinephrine. PAST MEDICAL HISTORY: Negative. HOME MEDICATIONS: None. SOCIAL: She is . Lives with her . No alcohol or tobacco. FAMILY HISTORY: Otherwise negative. REVIEW OF SYSTEMS: Otherwise negative. PHYSICAL EXAMINATION: Vital Signs: Blood pressure 114/61, heart rate 97, respirations 16, temperature 98.3 degrees. General: No acute distress. Mental status as above. Skin: Warm and dry. HEENT: Conjunctivae are pink. Pupils are equal. Oropharynx is moist. A closed face mask in place. Neck: Neck veins are not distended. Trachea midline. Heart: PMI is nondisplaced. Regular rate and rhythm. Mildly tachycardic. No gallops or murmurs. Lungs: Have equal breath sounds. No crackles or wheezes. Somewhat shallow. Abdomen: Soft and minimal bowel sounds but also minimally tender. Not distended. Extremities: Have trace edema. No clubbing or cyanosis. Neurologic: Grossly nonfocal except poor participation. IMPRESSION: Acute kidney injury. Creatinine 4.2 today with BUN 40. She does not meet criteria for dialysis today and her urine output seems to be improving. She does have a moderate metabolic acidosis. Current IV fluids are D5 half-normal saline. We will continue this as ordered. Medications otherwise reviewed and no changes are required. I counseled the family that she may require dialysis before recovery but overall good prognosis. cc: MD Sarah Bauman MD
[2018-10-30] MEDS: HUMULIN R SUBQ SCH ×6 (01:16→19:14)
[2018-10-30] MEDS: OFIRMEV 1000 MG/ISOTONIC SOLN 1,000 MG/100 ML BOTTLE IV SCH ×4 (05:00→22:20)
[2018-10-30] MEDS: SODIUM CHLORIDE 0.9% INJ SCH ×2 (05:00→16:28)
[2018-10-30] MEDS: NEXIUM IV SCH ×2 (05:00→16:28)
[2018-10-30] MEDS: ZOSYN 2.25 GM in NS 50 ML IV SCH ×4 (05:04→22:20)
[2018-10-30 05:23] LABS: HEMATOCRIT 31.8 % (37.0-47.0); HEMOGLOBIN 10.9 g/dL (12.0-16.0); MCH 34.2 PG (27-31); MCHC 34.3 g/dL (33-37); MCV 99.7 FL (81-99); RBC 3.19 XMIL (4.2-5.4); RDW 13.3 % (11.5-14.5); WBC 8.58 X1000 (4.8-10.8)
[2018-10-30 05:41] LABS: ALB/GLOB RATIO 0.6; CALCIUM 7.7 mg/dL (8.8-10.2); POTASSIUM 3.6 mmol/L (3.5-5.1); TOTAL BILIRUBIN 0.51 mg/dL (0.20-1.00); TOTAL PROTEIN 5.1 g/dL (6.3-8.3)
[2018-10-30 05:55] LABS: BLOOD TYPE ARTERIAL; SAMPLE BLOOD
[2018-10-30 05:56] LABS: ALLEN TEST YES; HCO3-(ACT) 18.7 mmoll (20.0-26.0); METHB 1.1 % (0.0-1.5); MODALITY COOL AEROSOL; O2(CT) 15.9 mL/dL (15.0-23.0); O2HB 97.1 % (95.0-99.0); PCO2(98.6) 36 mmHg (35-45); PO2(98.6) 115 mmHg (60-100); SAO2 100.4 % (95.0-100.0); THB 11.5 g/dL (11.5-17.4)
--- NOTE | 2018-10-30 07:21 | Diag Imaging Result Doc PS360 ---
EXAM: CHEST-PORTABLE 10/30/2018 HISTORY: respiratory failure TECHNIQUE: AP portable at 0530 COMMENT: There is an NG tube with its tip below the diaphragm. There is cardiomegaly. This is worse than on 10/29/2018. There is increasing opacification of the lung bases and most likely there is bilateral pleural fluid. IMPRESSION: Worsening cardiomegaly, pleural effusions and pulmonary edema. Electronically signed by Jose Ledbetter 10/30/2018 7:19 AM
[2018-10-30] MEDS: LOVENOX SUBQ SCH (08:56)
[2018-10-30] MEDS: LASIX IV SCH ×3 (11:06→21:39)
[2018-10-30] MEDS: D5 1/2 NS 1,000 ML IV SCH (13:05)
--- NOTE | 2018-10-30 14:26 | GENERAL SURGERY PROGRESS NOTE ---
DATE: 10/30/2018 Ms. Cadet's heart rate is 78, blood pressure 113/67. I think she is off her Levophed now. She is comfortable on nasal cannula. She is afebrile. She has bilateral breath sounds. Her abdomen is appropriately tender. She has an NG tube in place with bilious output. She has 2339 recorded in and 1225 recorded out a positive intake to output of 1114. She is making urine now. LABORATORY DATA: Reveals a white count of 8600, hemoglobin 10.9, hematocrit 31.8. Her gaseous pH 7.3, pCO2 36, PO2 115, a base deficit of 8. That is on 40% oxygen. Her BUN remains 40. Her creatinine remains 4.0. ASSESSMENT: She appears stable off the ventilator. Her acute kidney injury persists. NG tube is functioning. She continues to have a metabolic acidosis which may be related to her kidney failure. We will continue with adequate hydration, NG suction, and antibiotic therapy. Hopefully her kidney function will start to resolve. No further intervention currently. cc: MD Sarah Cortes MD
--- NOTE | 2018-10-30 15:12 | NEPHROLOGY PROGRESS NOTE ---
DATE: 10/30/2018 SUBJECTIVE: She remains lethargic. Difficult to arouse. OBJECTIVE: Vital Signs: Blood pressure 114/64, heart rate 76, respiration 11, afebrile. Intake 2.3 L. Output 1.2 L. Physical Examination: No acute distress. Skin: Warm and dry. Conjunctivae are pink. Neck: Neck veins are about 6 cm. Heart: Regular. No gallops. Lungs: Equal. No crackles or wheezes. Abdomen: Soft. Diminished bowel sounds. Not apparently tender. Extremities: Have 2+ edema. No clubbing or cyanosis. IMPRESSION: 1. Acute kidney injury. Her BUN and creatinine have stabilized in the last 24 hours. Urine output is adequate. Modest metabolic acidosis. Hyperkalemia is resolved. Continue IV fluids as ordered. No other changes. cc: MD Sarah Bauman MD
--- NOTE | 2018-10-30 15:18 | PULMONOLOGY PROGRESS NOTE ---
DATE: 10/30/2018 SUBJECTIVE: Patient was sleeping upon my arrival. She is resting comfortably. She will arouse and briefly speak, but then drifts back to sleep. OBJECTIVE: Vital Signs: The patient has been afebrile for the last 24 hours. Blood pressure 122/78, heart rate 80, respiratory rate 12, oxygen saturation 99% on 1 L per nasal cannula. HEENT: Pupils are equal and reactive. Oropharynx appears clear. Neck: Supple. Chest: Reveals decreased breath sounds in the lung bases. Cardiac exam: S1, S2. Abdomen: Mildly distended with mild tenderness to palpation. Extremities: Reveal 1+ peripheral edema. LABORATORIES/X-RAYS: Chest x-ray reveals increasing cardiomegaly, pleural effusions, and pulmonary edema. Sodium 140, potassium 3.6, chloride 107, bicarbonate 18. BUN 40, creatinine 4.0, glucose 106. White blood count 8.58, hemoglobin 10.9, platelet count 127,000. Arterial blood gas reveals a pH 7.30, pCO2 of 36, pO2 of 115. IMPRESSION: A 72-year-old with: 1. Acute hypoxemic respiratory failure. 2. Septic shock, which has resolved. 3. Acute renal failure. 4. Peritonitis status post repair of a perforated duodenal ulcer. 5. Pulmonary edema and pleural effusions due to volume resuscitation and renal failure. DISCUSSION: A 72-year-old with problems outlined above. She is doing relatively well and appears to be in no distress off mechanical ventilation. Her chest x-ray does look worse and she is at risk for respiratory decline with mobilization of fluids. RECOMMENDATIONS: 1. Continue oxygen for hypoxemic respiratory failure. 2. Attempt diuresis which may be limited with acute renal failure. 3. Continue broad-spectrum antibiotics. 4. Anticipate the need for dialysis if she does not have increasing urine output over the next 24 hours. cc: MD Sarah Judd MD
[2018-10-31] MEDS: HUMULIN R SUBQ SCH ×6 (00:01→19:19)
[2018-10-31] MEDS: D5 1/2 NS 1,000 ML IV SCH ×2 (04:23→16:36)
[2018-10-31 05:16] LABS: ALLEN TEST YES; BE -5.1 mmoll (-3.0-3.0); BLOOD TYPE ARTERIAL; HCO3-(ACT) 20.9 mmoll (20.0-26.0); METHB 1.4 % (0.0-1.5); O2(CT) 16.3 mL/dL (15.0-23.0); O2HB 95.7 % (95.0-99.0); PCO2(98.6) 36 mmHg (35-45); PO2(98.6) 106 mmHg (60-100); SAMPLE BLOOD; SAO2 99.2 % (95.0-100.0); pH(98.6) 7.35 (7.35-7.45)
[2018-10-31 05:17] LABS: MODALITY CANNULA
[2018-10-31] MEDS: OFIRMEV 1000 MG/ISOTONIC SOLN 1,000 MG/100 ML BOTTLE IV SCH ×4 (05:46→23:11)
[2018-10-31] MEDS: ZOSYN 2.25 GM in NS 50 ML IV SCH ×4 (05:46→23:11)
[2018-10-31] MEDS: NEXIUM IV SCH ×2 (05:46→16:25)
[2018-10-31] MEDS: SODIUM CHLORIDE 0.9% INJ SCH ×2 (05:46→16:25)
[2018-10-31 06:19] LABS: HEMATOCRIT 33.7 % (37.0-47.0); HEMOGLOBIN 11.7 g/dL (12.0-16.0); MCH 33.6 PG (27-31); MCHC 34.7 g/dL (33-37); MCV 96.8 FL (81-99); MPV 12.3 FL (7.4-10.4); RBC 3.48 XMIL (4.2-5.4); RDW 13.3 % (11.5-14.5); WBC 6.45 X1000 (4.8-10.8)
[2018-10-31 07:05] LABS: AGAP 19; CHLORIDE 103 mmol/L (98-107); GLUCOSE 97 mg/dL (70-104); POTASSIUM 3.3 mmol/L (3.5-5.1); SODIUM 141 mmol/L (136-145); TCO2 19 mmol/L (25-35)
[2018-10-31 07:06] LABS: ALB/GLOB RATIO 0.6; ALKALINE PHOSPHATASE 75 U/L (32-104); BUN 42 mg/dL (8-22); CALCIUM 7.7 mg/dL (8.8-10.2); COSMO 292; CREATININE 3.6 mg/dL (0.5-0.9); ESTIMATED GFR 15; GOT 30 U/L (10-30); GPT < 5 U/L (10-36); TOTAL BILIRUBIN 0.75 mg/dL (0.20-1.00); TOTAL PROTEIN 5.5 g/dL (6.3-8.3)
--- NOTE | 2018-10-31 07:14 | Diag Imaging Result Doc PS360 ---
EXAM: CHEST-PORTABLE 10/31/2018 HISTORY: respiratory failure TECHNIQUE: AP portable at 0515 COMMENT: There is cardiomegaly. There is platelike atelectasis bilaterally. There is pulmonary edema versus pneumonia in the lower lobes bilaterally. There has been no appreciable change since 10/30/2018. IMPRESSION: Cardiomegaly, pulmonary edema and bilateral subsegmental atelectasis. Electronically signed by Jose Ledbetter 10/31/2018 7:11 AM
[2018-10-31] MEDS: LOVENOX SUBQ SCH (08:54)
--- NOTE | 2018-10-31 09:58 | GENERAL SURGERY PROGRESS NOTE ---
DATE: 10/31/2018 Ms. Cadet is awake and alert. She is afebrile, heart rate 70, blood pressure 116/63. Bilateral breath sounds are present. Intake was 2210, output 4400. NG has been less than 100. White count is down to 6400. PH is up to 7.35. Base excess is down the -5.1. Potassium is 3.3, BUN 42, creatinine is down to 3.6. ASSESSMENT: Ms. Cadet appears to be improving with decrease in her FiO2 requirements, improvement of her acidosis, and fall in her creatinine. We will allow her to have ice chips. We will continue her nasogastric suction for at least 1 more day. cc: MD Sarah Cortes MD
--- NOTE | 2018-10-31 16:34 | PULMONOLOGY PROGRESS NOTE ---
DATE: 10/31/2018 SUBJECTIVE: The patient is arousable to awake. She is without specific complaints. She is difficult to engage in conversation. OBJECTIVE: Intake 2210 mL. Output 4400 mL. Vital signs: BP 131/77, heart rate 79, respiratory rate 21, oxygen saturation 99% on 2 L per nasal cannula. HEENT: Pupils are equal and reactive. Oropharynx appears clear. Neck: Supple. Chest: Reveals good air entry bilaterally with crackles in the lung bases. Cardiac exam: S1, S2. Abdomen: Soft. Extremities: Reveal decreasing edema. LABORATORIES: Sodium 141, potassium 3.3, chloride 103, bicarbonate 19, BUN 42, creatinine 3.6. White blood count 6.45, hemoglobin 11.7, platelet 115,000. Chest x-ray reveals cardiomegaly, mild vascular congestion without significant change. Arterial blood gas reveals pH of 7.35, pCO2 of 36, PO2 of 106 on 2 L per nasal cannula. IMPRESSIONS: A 72-year-old with: 1. Acute hypoxemic respiratory failure. 2. Acute renal failure. 3. Peritonitis status post repair of a perforated duodenal ulcer. 4. Pleural effusions with continued improvement. RECOMMENDATIONS: 1. Continue bronchial hygiene. 2. Wean oxygen as tolerated. 3. P.o. intake as determined by General Surgery. 4. Continue broad-spectrum antibiotics. 5. Initiate physical therapy. cc: MD Sarah Judd MD
[2018-10-31] MEDS ORDERED: LASIX IV ONE (21:00)
[2018-11-01] MEDS: HUMULIN R SUBQ SCH ×5 (00:51→16:30)
[2018-11-01] MEDS: ZOSYN 2.25 GM in NS 50 ML IV SCH ×2 (04:35→10:46)
[2018-11-01] MEDS: OFIRMEV 1000 MG/ISOTONIC SOLN 1,000 MG/100 ML BOTTLE IV SCH ×2 (04:35→10:46)
[2018-11-01] MEDS: D5 1/2 NS 1,000 ML IV SCH ×3 (04:35→14:25)
[2018-11-01] MEDS: NEXIUM IV SCH (04:36)
[2018-11-01] MEDS: SODIUM CHLORIDE 0.9% INJ SCH (04:36)
--- NOTE | 2018-11-01 06:12 | Diag Imaging Result Doc PS360 ---
EXAM: CHEST-PORTABLE HISTORY: respiratory failure TECHNIQUE: Portable chest single view COMPARISON: 10/31/2018 FINDINGS: Poor inspiratory effort. The heart remains enlarged. There are small pleural effusions. There is basilar atelectasis and/or infiltrates. Nasogastric tube overlies the esophagus and stomach. IMPRESSION: Stable exam. Electronically signed by Jose Anderson 11/01/2018 6:10 AM
[2018-11-01 06:24] LABS: HEMATOCRIT 36.1 % (37.0-47.0); HEMOGLOBIN 12.6 g/dL (12.0-16.0); MCH 34.1 PG (27-31); MCHC 34.9 g/dL (33-37); MCV 97.8 FL (81-99); MPV 12.6 FL (7.4-10.4); RBC 3.69 XMIL (4.2-5.4); RDW 13.5 % (11.5-14.5); WBC 6.26 X1000 (4.8-10.8)
[2018-11-01] MEDS: LOVENOX SUBQ SCH (07:59)
[2018-11-01 08:27] LABS: AGAP 20; ALB/GLOB RATIO 0.5; ALBUMIN 1.8 g/dL (3.5-5.0); ALKALINE PHOSPHATASE 73 U/L (32-104); BUN 50 mg/dL (8-22); CALCIUM 7.3 mg/dL (8.8-10.2); CHLORIDE 102 mmol/L (98-107); COSMO 295; CREATININE 3.1 mg/dL (0.5-0.9); ESTIMATED GFR 18; GLUCOSE 110 mg/dL (70-104); GOT 22 U/L (10-30); GPT < 5 U/L (10-36); POTASSIUM 3.2 mmol/L (3.5-5.1); SODIUM 141 mmol/L (136-145); TCO2 19 mmol/L (25-35); TOTAL BILIRUBIN 0.69 mg/dL (0.20-1.00); TOTAL PROTEIN 5.6 g/dL (6.3-8.3)
[2018-11-01] MEDS: ALBUMIN 25% IV SCH (10:50)
[2018-11-01] MEDS ORDERED: NORCO-10 PO PRN (13:24)
--- NOTE | 2018-11-01 13:26 | PROGRESS NOTE ---
DATE: 11/01/2018 SUBJECTIVE: Ms. Cadet it is now postop day 5 from a Simba patch closure of a perforated duodenal ulcer. She remains in the ICU but, she is extubated. I removed her NG tube this morning. We will start her on clear liquids. She is making more urine but her creatinine is still 3.1 but is trending downward. Physical Therapy has been ordered. She has been kind of sleepy today. We will transfer her to the floor. Her heart rate is 70. Blood pressure 146/68, O2 saturation 97%. She is afebrile. She is on IV Zosyn prophylactically. White blood cell count is normal. Hematocrit is 36%. Electrolytes are satisfactory with a BUN of 50 and a creatinine of 3.1. Liver function tests are essentially normal. A chest x-ray shows small pleural effusions and some atelectasis. Her midline incisions are healing well without evidence of infection. Her abdomen is mostly soft. It is not overly tender. PLAN: We will change her IV medications to p.o. cc: Sarah Slater MD
--- NOTE | 2018-11-01 15:20 | NEPHROLOGY PROGRESS NOTE ---
DATE: 11/01/2018 Date Seen: 11/01/2018 Time Seen: 06:30. SUBJECTIVE: Ms. Cadet is resting quietly in bed. She opens her eyes randomly but drifts right off back to sleep. OBJECTIVE: Her most recent vital signs: Temperature 97.2 degrees, blood pressure 142/73, heart rate 68, respirations are 14. She is on 40% with last recorded saturation of 97%. She has had 2380 in, 2560 out to Paz catheter. LABORATORY DATA: Most recent labs: Her sodium is 141, potassium 3.2, chloride 102, CO2 19, BUN 50, creatinine 3.1, glucose of 110. The patient has an anion gap of 20, calcium of 7.3, albumin of 1.8. She has a white count of 6.26, hemoglobin 12.6, hematocrit 36.1, platelet count 116,000. PHYSICAL EXAMINATION: General: This is a 72-year-old female. She is resting quietly in bed. She appears chronically ill with no acute distress. Skin: Warm and dry. HEENT: Normocephalic, atraumatic. Conjunctiva is pink. She has JOSUE. Mucous membranes are dry. Neck: Supple, trachea midline. No evidence of JVD. Cardiovascular: She is regular rate and rhythm. She is without murmur or gallop. Lungs: Clear to auscultation anterior. Abdomen: Soft, slightly tender. Midline dressing is dry and intact. Genitourinary: Not inspected. Paz catheter is in place. Extremities: Have trace edema. This is up into the hip region of 2+. No clubbing or cyanosis lower extremities. Neurological: As mentioned above. ASSESSMENT AND PLAN: 1. Acute kidney injury. BUN and creatinine have stabilized. Her BUN is just slightly elevated at 50 with a creatinine down to 3.1 from 3.6. She has had adequate urine output documented. No indications for intervention. 2. Modest metabolic acidosis. We will continue to monitor. 3. Hyperkalemia. This is resolved. 4. Abdominal pain. She is status post surgery for repair of perforated duodenal ulcer followed by Dr. Daley. 5. Pleural effusions. This continues to be stable. Followed by Dr. Engle. The patient remains on Zosyn. This is renally dosed. I would like to thank you for allowing us to follow with this patient. Dictated by MAREK Romero for Yandel Haddad MD Face to face encounter, data reviewed, discussed with Armando Levin on 11/01/18. I agree with the above assessment and plan of care. cc: MAREK Romero MD [facility], MD [facility]
--- NOTE | 2018-11-01 16:04 | PULMONOLOGY PROGRESS NOTE ---
DATE: 11/01/2018 SUBJECTIVE: Patient was sleeping on arrival. She is arousable to alert. She will respond to questions. She denies pain. OBJECTIVE: Vital Signs: The patient has been afebrile for the last 24 hours. Blood pressure 130/78, heart rate 70, respiratory rate 14, oxygen saturation 97% on 2 L per nasal cannula. HEENT: Pupils are equal and reactive. Oropharynx is clear. Neck: Supple. Chest: Reveals shallow breath sounds bilaterally. Cardiovascular: S1-S2. Abdomen: Soft with diminished bowel sounds. Extremities: Reveal trace edema. LABORATORY DATA: White blood count 6.26, hemoglobin 12.6, platelet count 116,000. Sodium 141, potassium 3.2, chloride 102, bicarbonate 19, BUN 15, creatinine 3.1. White blood count 6.26, hemoglobin 12.6, platelet count 106,000. Chest x-ray reveals generous cardiac silhouette, shallow inspiration, small effusions and bibasilar. IMPRESSION: 72-year-old with: 1. Acute hypoxemic respiratory failure. 2. Acute renal failure. 3. Pleural effusions. 4. Peritonitis status post repair of a perforated duodenal ulcer. DISCUSSION: A 72-year-old with problems outlined above. She continues to do well off the ventilation. RECOMMENDATIONS: 1. Continue bronchial hygiene. 2. Wean oxygen as tolerated. 3. P.O. intact per General surgery. 4. Initiate physical therapy. 5. Anticipate transfer to the floor. cc: MD Sarah Judd MD
[2018-11-02] MEDS: HUMULIN R SUBQ SCH ×7 (00:17→22:39)
[2018-11-02] MEDS: D5 1/2 NS 1,000 ML IV SCH ×2 (05:28→14:55)
--- NOTE | 2018-11-02 06:55 | Diag Imaging Result Doc PS360 ---
EXAM: CHEST-PORTABLE 11/02/2018 HISTORY: respiratory failure TECHNIQUE: AP portable at 0608 COMMENT: There is cardiomegaly. There is ill-defined opacity in the left lower lobe. There is platelike atelectasis in the lingula and in the right lower lobe. The NG tube has been removed since the previous study of 11/01/2018 but otherwise are has been no significant change. IMPRESSION: Bibasilar atelectasis. Questionable left lower lobe pneumonia. Cardiomegaly and mild pulmonary edema. Electronically signed by Jose Ledbetter 11/02/2018 6:52 AM
[2018-11-02 07:38] LABS: HEMATOCRIT 32.8 % (37.0-47.0); HEMOGLOBIN 11.3 g/dL (12.0-16.0); MCH 33.9 PG (27-31); MCHC 34.5 g/dL (33-37); MCV 98.5 FL (81-99); MPV 12.2 FL (7.4-10.4); RBC 3.33 XMIL (4.2-5.4); RDW 13.6 % (11.5-14.5); WBC 7.28 X1000 (4.8-10.8)
[2018-11-02 07:51] LABS: ALB/GLOB RATIO 0.8; ALBUMIN 2.9 g/dL (3.5-5.0); CREATININE 2.5 mg/dL (0.5-0.9); TOTAL BILIRUBIN 0.75 mg/dL (0.20-1.00); TOTAL PROTEIN 6.4 g/dL (6.3-8.3)
--- NOTE | 2018-11-02 08:40 | PROGRESS NOTE ---
DATE: 11/02/2018 Ms. Cadet has been transferred from the ICU to the [address] [place] [address]. This morning she appears to be comfortable. She is awake and cooperative. We started her on clear liquid diet yesterday. She still has her Paz catheter tube in place, and is receiving IV fluids. Her heart rate 64, blood pressure 191/77, and O2 saturation 95%. She is afebrile. She has had a bowel movement. Her white blood cell count is normal. Hematocrit is 33%. Her BUN and creatinine are improving daily. It is 54 and 2.5 today. A chest x-ray suggests some atelectasis. Her midline incisions are healing without infection. Her abdomen is mostly soft. We had physical therapy seeing her. We need to increase her activity. I will advance her diet from clear to full liquids. She is on p.o. Nexium, and her IV antibiotics have been stopped. cc: Sarah Slater MD
[2018-11-02] MEDS: LOVENOX SUBQ SCH (10:25)
[2018-11-02] MEDS: ALBUMIN 25% IV SCH (10:26)
[2018-11-02] MEDS ORDERED: NS 500 ML ONE (10:37)
[2018-11-02] MEDS: KLOR-CON PO SCH ×2 (15:17→22:43)
[2018-11-02] MEDS ORDERED: CALMOSEPTINE OINTMENT TOP PRN (17:49)
--- NOTE | 2018-11-02 18:59 | NEPHROLOGY PROGRESS NOTE ---
DATE: 11/02/2018 TIME SEEN: 0745 SUBJECTIVE: Ms. Cadet is resting quietly in bed her head of the bed is slightly elevated. She is a little bit more awake today. She is talking, denies chest pain or increased work of breathing. OBJECTIVE: Vital Signs: Temperature 99.4 degrees, blood pressure 183/80, heart rate 70, respirations 18, she is on room air, last recorded saturation 100%, she has had 1408 in, she has had 1200 out to Paz catheter. LAB: Sodium 142, potassium 3, chloride 102, CO2 20, BUN 54, creatinine 2.5, glucose is 114, anion gap of 20, her calcium 8, albumin 2.9. White count 7.28, hemoglobin 11.3, hematocrit 32.8 with a platelet count of 160,000. PHYSICAL EXAM: This is a 72-year-old female resting quietly in bed, she appears in no acute distress.Skin: Warm and dry. HEENT: Normocephalic, atraumatic. Conjunctiva is pale, she has JOSUE. Mucous membranes are dry. Neck: Supple. Trachea midline. No JVD. Cardiovascular: She is regular rate and rhythm. She has an S4. Lungs: Clear to auscultation bilateral. Equal excursion on room air. Abdomen: Soft, nontender, positive bowel sounds hypoactive, nontender on light palpation. Extremities: Have no edema, no clubbing or cyanosis. Neurological: More awake and alert today x2. ASSESSMENT AND PLAN: 1. Acute kidney injury, BUN and creatinine continue to improve creatinine down to 2.5, her BUN is stable at 54, adequate urine output is documented. 2. Electrolytes and acid-base balance these remain stable. 3. Hypokalemia. We will evaluate potassium supplement replacement today and reevaluate her labs in the a.m. if not done. 4. Anemia, this remains low but stable. 5. Status post abdominal repair followed by primary care and surgery. Like to thank you for allowing us to follow with this patient. Dictated by MAREK Romero for Yandel Haddad MD Face to face encounter, data reviewed, discussed with Armando Levin on 11/02/18. I agree with the above assessment and plan of care. cc: MAREK Romero, MD Sarah R. Nohemy, MD [facility]
[2018-11-02] MEDS ORDERED: APRESOLINE IV PRN ×3 (20:48→21:06)
--- NOTE | 2018-11-02 21:43 | Diag Imaging Result Doc PS360 ---
EXAM: CT HEAD W/O CONTRAST HISTORY: unable to move lower extremity, HTN TECHNIQUE: CT head without contrast COMPARISON: None. FINDINGS: No parenchymal hemorrhage. No epidural or subdural hematoma. No subarachnoid hemorrhage. Prominent microvascular ischemic changes with old bilateral lacunar infarcts. No mass identified on this noncontrasted exam. No hydrocephalus. Right maxillary air-fluid level. IMPRESSION: 1.No hemorrhage 2.Chronic ischemic changes with small old infarcts 3.Right maxillary sinusitis This exam was performed using automated exposure control, adjustment of mA or kV according to patient size, and/or use of iterative reconstruction technique. Electronically signed by Jose Anderson 11/02/2018 9:41 PM
--- NOTE | 2018-11-02 21:47 | Diag Imaging Result Doc PS360 ---
EXAM: CT THORAX W/O CONTRAST HISTORY: edema vs PNA TECHNIQUE: CT chest without contrast COMPARISON: Earlier chest x-ray FINDINGS: Small bilateral pleural effusions. Bibasilar atelectasis and infiltrates. The heart is enlarged. There is pulmonary edema. There are scattered granuloma and small calcified nodes. IMPRESSION: Cardiomegaly with pulmonary edema and small pleural effusions consistent with congestive failure as well as basilar atelectasis and small infiltrates. This exam was performed using automated exposure control, adjustment of mA or kV according to patient size, and/or use of iterative reconstruction technique. Electronically signed by Jose Anderson 11/02/2018 9:45 PM
--- NOTE | 2018-11-02 22:07 | PULMONOLOGY PROGRESS NOTE ---
DATE: 11/02/2018 SUBJECTIVE: The patient is awake, alert and conversant. She reports she does not have a primary care physician following her blood pressure. OBJECTIVE: Vital Signs: BP 192/75, heart rate 68, respiratory rate 16. Oxygen saturation 96% on room air. HEENT: Pupils are equal and reactive. Oropharynx appears clear. Neck: Supple. Chest: Reveals diminished breath sounds in the lung bases. Cardiac: S1, S2. Abdomen: Soft, without hepatosplenomegaly. Extremities: Without edema. LABORATORIES: White blood count 7.28, hemoglobin 11.3, platelet count 160,000. Sodium 142, potassium 3.0, chloride 102, bicarbonate 20, BUN 54, creatinine 2.5. Chest x-ray reveals cardiomegaly and atelectasis in the lung bases versus left lower lobe pneumonia. IMPRESSION: A 72-year-old with: 1. Acute hypoxemic respiratory failure. 2. Acute renal failure. 3. Bilateral effusions with possible left basilar pneumonia. 4. Peritonitis status post repair of a perforated duodenal ulcer. 5. Hypertension, there is likely a component of chronicity. RECOMMENDATION: 1. Continue bronchial hygiene. 2. Mobilize as tolerated. 3. Diet as per General Surgery. She currently is on a clear liquid diet. 4. Encourage patient to establish a primary care physician for hypertension control as an outpatient. cc: MD Sarah Judd MD
--- NOTE | 2018-11-02 22:14 | PROGRESS NOTE ---
DATE: 11/02/2018 SUBJECTIVE: Ms. Sandi Cadet is a 72-year-old woman who was transferred from [facility] to our service, but had been seen by Dr. Slater to address a perforated peptic ulcer. She has since undergone surgery on the same day which involved an open Simba patch repair of perforated duodenal ulcer. We were contacted today 11/02/[address] Connelly to address escalating blood pressure of 190s to 204 this evening. I went to see the patient today around 9 o'clock and noticed her last blood pressure was 204/80, heart rate was 70, respirations 17, and temperature was 98.6. She is being followed by Dr. Engle and Dr. Haddad for breathing problems and for acute kidney injury. Her blood sugar this morning has been 20. When I saw the patient, oddly enough, she denies any complaints other than her abdominal pain which is mild. She denies any BMs. This patient is totally unreliable from a historical standpoint. On reviewing her records, she has had at least 3 BMs over the course of 2 days. Thus, her history cannot be relied upon. I asked the patient if she had any cardiorespiratory complaints, any gastrointestinal complaints, any focal neurological complaints. OBJECTIVE: My exam other than the aforementioned, the vital signs. General: The patient is alert, oriented, follows commands, but states that she thinks she is in [facility] and states that today is Thursday and does not recall who the squeak rattle and leak repairer is. She will follow all instructions. Neurological: Her neurological exam is notable for possible left lower extremity weakness. She is able to lift her right leg off the bed, but when I told to her to lift her left leg lower extremity off the bed repeatedly, she struggled and could not do it. I just got word from the nurse that she is able to do it now. Otherwise cranial nerves are intact. No other focal deficits appreciated. No evidence of myoclonus or asterixis. Cardiorespiratory: Exam shows left basal crepitations. Otherwise lungs are clear. Cardiovascular System: First and second heart sounds are heard. No gallops, murmurs, or rubs. Rhythm is regular. Abdomen: Full. She has a stapled midline surgical wound. She has a few bowel sounds in the right lower quadrant area, and she is mildly diffusely tender. Extremities: No edema, clubbing, or peripheral cyanosis. Distal pulses good volume and regular. Skin: Intact. No breakdown, lesions, or erythema. Musculoskeletal: Exam is grossly normal. ASSESSMENT: 1. Acute kidney injury, probably postoperatively from volume depletion. 2. Hypokalemia noted on labs today. Could be related to GI versus kidney losses, currently being repleted. 3. Escalating hypertension. It could be due to the fact that the patient has been off her blood pressure medications, although this cannot be reliably confirmed. Also could be a possibility of acute stroke. 4. Probable pneumonia versus pulmonary edema. 5. Hypoglycemia. Etiology yet to be determined. It could be as a consequence of a dumping syndrome. PLAN: Due to the fact that patient is an extremely unreliable historian, i.e., orientation is a little off which could be due to uremia versus stroke and also due to the fact the patient is eliciting possible left lower extremity weakness which could be either due to stroke or just poor understanding of instructions from a uremic or metabolic picture, it would be prudent for us to rule out the possibility of an acute stroke. If this is a true stroke, it may be involving her right acute cerebral artery vascular territory. In the interim, we will start patient on a baby aspirin and very modest blood pressure control using low-dose Norvasc, to be held if systolic blood pressure is less than 180. Also if the systolic blood pressure is greater than 220, we will give p.r.n. IV hydralazine. We will consult Neurology to evaluate patient's somewhat altered cognition. Also we will get a CT head, and we will also do a CT thorax while she is down there to evaluate the possibility of simultaneous pneumonia versus pulmonary embolism. We will proceed further to order an MRI in the a.m. to effectively rule out the possibility of a stroke. We will be mindful of inducing hyperglycemia in this patient since this usually portends a poor prognosis in patients with strokes. Continue with Accu-Cheks q.4 h. Also volume status needs to be monitored closely in this patient due to the fact that she may have a mild pulmonary edema, although clinically this does not appear to be the case of respiratory distress. Avoid any nephrotoxic medication. My colleagues will be seeing patient in the a.m. and will follow up on stand outstanding issues. I would like to thank Dr. Connelly for notify us. cc: MD Sarah Spain MD [facility]ITALJeovanny
[2018-11-02] MEDS: NORVASC PO SCH (22:44)
[2018-11-03] MEDS: HUMULIN R SUBQ SCH ×6 (02:52→20:36)
[2018-11-03] MEDS: D5 1/2 NS 1,000 ML IV SCH (04:31)
[2018-11-03] MEDS: NEXIUM PO SCH ×2 (05:49→06:14)
[2018-11-03 06:53] LABS: HEMATOCRIT 33.1 % (37.0-47.0); HEMOGLOBIN 11.3 g/dL (12.0-16.0); MCH 33.9 PG (27-31); MCHC 34.1 g/dL (33-37); MCV 99.4 FL (81-99); MPV 11.4 FL (7.4-10.4); RBC 3.33 XMIL (4.2-5.4); RDW 13.8 % (11.5-14.5); WBC 9.66 X1000 (4.8-10.8)
[2018-11-03 07:18] LABS: ALB/GLOB RATIO 1.5; ALBUMIN 3.6 g/dL (3.5-5.0); CALCIUM 8.3 mg/dL (8.8-10.2); CREATININE 1.5 mg/dL (0.5-0.9); POTASSIUM 3.5 mmol/L (3.5-5.1); TOTAL BILIRUBIN 0.78 mg/dL (0.20-1.00)
--- NOTE | 2018-11-03 07:22 | Diag Imaging Result Doc PS360 ---
EXAM: CHEST-PORTABLE HISTORY: respiratory failure TECHNIQUE: Portable chest single view COMPARISON: 11/02/2018 FINDINGS: Poor inspiratory effort. Heart is mildly enlarged. There is pulmonary edema and trace pleural fluid. Edema is more pronounced on the current study. Granuloma in the lower right lung. IMPRESSION: Mild interval worsening. Electronically signed by Jose Anderson 11/03/2018 7:20 AM
--- NOTE | 2018-11-03 08:11 | PROGRESS NOTE ---
DATE: 11/03/2018 SUBJECTIVE: The hospitalists were consulted overnight per Dr. Connelly because of the patient's hypertension. There was also a question whether she could have suffered a stroke. She has been put on antihypertensive medications. She has undergone a head CT scan. She has also undergone a chest CT scan and a chest x-ray. She still has a Paz catheter tube in place. She is tolerating a full liquid diet. She appears to be awake and cooperative this morning. Her heart rate is 85, blood pressure 174/81, O2 saturation 99%. She is afebrile on no antibiotics. Chest x-ray suggests some congestive heart failure with pulmonary edema, but she has no work of breathing. Her white blood cell count is normal. Hematocrit is 33%. BUN and creatinine continue to improve. Her BUN is 42, creatinine is 1.5. Liver function tests are essentially normal. Midline incision is healing well without evidence of infection. Her abdomen is mostly soft. She has had bowel movements, and we will advance her diet to a GI soft diet. cc: Sarah Slater MD
[2018-11-03] MEDS ORDERED: ASPIRIN EC PO SCH (09:00)
[2018-11-03] MEDS: ALBUMIN 25% IV SCH (10:27)
[2018-11-03] MEDS: NORVASC PO SCH ×2 (10:29→20:42)
[2018-11-03] MEDS: LOVENOX SUBQ SCH (10:29)
--- NOTE | 2018-11-03 13:53 | Diag Imaging Result Doc PS360 ---
EXAM: MRI BRAIN W/O CONTRAST HISTORY: Possible CVA TECHNIQUE: T1 sagittal, axial, T2, FLAIR, DWI axial and coronal gradient echo. COMPARISON: None. FINDINGS: There is extensive abnormal increased T2-weighted signal intensity throughout the periventricular white matter and in a patchy distribution in the centrum semiovale ovale and subcortical white matter over the parietal convexities and throughout the thalami and basal ganglia. There is a focus of probable encephalomalacia with surrounding increased T2-weighted signal intensity in the left brachium pontis and the other small foci within the cerebellum. In addition to the chronic findings there are numerous punctate areas of restricted diffusion present bilaterally including in the insula on the right the area of the genu of the internal capsule on the left, the right frontal corpus callosum and the posterior left parietal cortex. The distribution of these abnormalities in their size suggests a shower of emboli. IMPRESSION: Extensive chronic microvascular ischemic change with additional acute or subacute lacunar infarctions bilaterally. These findings were discussed by telephone with Divine at 1345, and Dr. Engle at 4510. Electronically signed by Jose Ledbetter 11/03/2018 1:51 PM
--- NOTE | 2018-11-03 14:48 | NEPHROLOGY PROGRESS NOTE ---
DATE: 11/03/2018 TIME SEEN: 07:30 SUBJECTIVE: Ms. Cadet is resting quietly in bed. She remains forgetful to most recent events. She has no complaints. OBJECTIVE: Vital Signs: Temperature 98.9 degrees, blood pressure 174/81, heart rate 85, respirations 18. She is on room air. Last recorded saturation 99%. She has had 1487 in and 1950 out to Paz catheter. LABORATORY DATA: Sodium is 142, potassium 3.5, chloride 104, CO2 20, BUN 42, creatinine 1.5, glucose 128. Her anion gap is 18. Her calcium is 8.3, albumin 3.6. White count 9.66, hemoglobin 11.3, hematocrit 33.1, platelet count 210,000. PHYSICAL EXAMINATION: General: This is a 72-year-old female. She is resting quietly in bed. She appears chronically ill. She is in no acute distress. Skin: Warm and dry. HEENT: Normocephalic, atraumatic. Conjunctivae pale. She has JOSUE. Mucous membranes are dry. Neck: Supple. Trachea midline. No JVD. Cardiovascular: She is regular rate and rhythm. She has an S4. Lungs: Clear to auscultation bilaterally. Equal excursion. She is on room air. Abdomen: Soft, nontender, positive bowel sounds. Genitourinary: Not inspected. Patient has a Paz catheter with adequate urine out. Extremities: Have no edema. No clubbing or cyanosis. Neurological: She is awake to person and forgetful to place and events today. ASSESSMENT AND PLAN: 1. Acute kidney injury. BUN and creatinine continue to slowly improve. Her creatinine is down to 1.5 with a BUN of 42. She remains stable today. We will sign off and remain available to the primary care team during her hospital stay. 2. Electrolytes and acid-base balance. These are acceptable. 3. Anemia. This is close to target. 4. Status post abdominal surgical repair followed by Primary and Surgery. I would to thank you for allowing us to follow with this patient. Dictated by MAREK Romero for Yandel Haddad MD Face to face encounter, data reviewed, discussed with Armando Levin on 11/03/18. I agree with the above assessment and plan of care. cc: MAREK Romero MD Lynn R. Buckner, MD [facility]
--- NOTE | 2018-11-03 15:47 | CARDIOLOGY CONSULTATION ---
DATE: 11/03/2018 HISTORY OF PRESENT ILLNESS: The patient is a 72-year-old Afro-[place] lady who was in [facility], subsequently transferred here, and underwent surgery. She was admitted with generalized abdominal pain which had begun prior to her admission at the hospitals. She has undergone surgery on 10/27/2018 and the patient was noted to have altered mental status and elevated blood pressures. A CT scan of her head was done and chest x-ray was done. CT scan of her head revealed microvascular changes with additional acute and subacute lacunar infarcts bilaterally. Chest x- ray revealed cardiomegaly with pulmonary edema, small pleural effusion. Patient at the present time denies any chest pain. Her history is not forthcoming. She says she feels reasonably well. She complains of weakness on the left side of her body. PAST MEDICAL HISTORY: 1. Perforated peptic ulcer status post surgery. 2. Hypertension. 3. Status post right hand surgery. HOME MEDICATIONS: Not reconciled. CURRENT MEDICATIONS: Hydrocodone, amlodipine 2.5 b.i.d., enteric-coated aspirin 81, Lovenox 30, Nexium 40, hydralazine 10 mg IV p.r.n., insulin as needed. ALLERGIES: She is not known to be allergic to any medication. PHYSICAL EXAMINATION: Vital Signs: Blood pressure was 178/85. Cardiovascular system: First and second heart sounds were heard. There was systolic murmur. There was no carotid bruit. Respiratory System: Normal air entry. There were scattered inspiratory crepitations. Abdomen: Recent surgery. Patient did not complain of any tenderness. Central nervous system: Was answering questions in monosyllables. Complained of some weakness in her left side. Detailed central nervous system examination not performed. She has weakness in her left lower extremity. DIAGNOSTIC STUDIES: Telemetry revealed sinus rhythm. ASSESSMENT AND PLAN: 1. Ms. Sandi Cadet is a 72-year-old black lady with a history of hypertension, admitted with abdominal discomfort, underwent surgery for perforated peptic ulcer, was noted to have altered mental status and a CT scan of her head was done in addition to chest x-ray. From a cardiac standpoint, we will get an electrocardiogram. Telemetry does not reveal any dysrhythmias. 2. She has a systolic murmur. We will get an echocardiogram to assess cardiac and valvular function. In addition, chest x-ray revealed features of heart failure. We will give her Lasix 40 mg. laboratory examination revealed sodium 142, potassium 3.5. BUN 42, creatinine 1.5. We will leave the Lasix at 40 mg IV now once a day. 3. She has had suggestion of a stroke and Neurology has been consulted. I have not made any changes to her blood pressure medications given her recent likely lacunar infarct which she has had. I will also get carotid Dopplers to rule out carotid disease to account for her symptoms. 4. Renal insufficiency. Note, Nephrology has been consulted as well. We will make further recommendations pending echocardiogram and hospital course. cc: MD Sarah Vicente MD
[2018-11-03] MEDS: LASIX IV SCH (16:48)
[2018-11-03] MEDS: LIPITOR PO SCH (20:42)
--- NOTE | 2018-11-03 22:03 | CONSULTATION ---
DATE OF CONSULTATION: 11/03/2018 HISTORY OF PRESENT ILLNESS: Ms. Cadet is 72 years old and there is reported altered mental state. History from the patient is that she remembers having intense abdominal pain. She does not recall details of admission. at the bedside reports there was not prior forgetfulness. There is no history of serious head injury, previous diagnosed stroke, seizure, other neurologic event. She has not abused ethanol. She has not recently started or stopped medication. She presented with acute abdomen and was managed surgically. She did well from surgical standpoint. She was intubated and then extubated a few days later. She has seemed confused. She was noted earlier to be alert, but she made some errors with answers to questions regarding orientation on earlier exam. There was not focal neurologic feature. Workup includes noncontrast CT showing old chronic ischemic change. Brain MRI today shows the old changes, and additional evidence of restricted diffusion in several subcortical areas bilaterally. LAB: Showed BUN initially in the 20s, later the 50s and now the 40s. She has had mildly elevated blood sugars. Blood pressures were significantly elevated earlier. PHYSICAL EXAMINATION: General: On exam, she is awake, alert, attentive. She answered questions appropriately, but sometimes incorrectly. She identified the hospital by name correctly. She incorrectly stated the month to be June and the President to be Mr. Guadarrama. She was not able to tell me the correct day of the week. She did well on bedside language testing of repeating, naming objects, naming parts of objects, right/left distinction, digit distinction, repeating. Speech is not significantly dysarthric. Head and neck: Are unremarkable. There is no meningismus. She has full visual mcqueen tested by confrontational finger counting. Extraocular movements are full. Facial motility is a little bit diminished bilaterally, but symmetric. Tongue is midline. She can hear. Neurologic: Strength is good in the arms and legs. Abdominal pain limits full effort with motor testing proximally in the legs. She did well on [id number]-[id number] testing bilaterally. Limb tone is symmetric. Plantar response is silent bilaterally. I did not test her gait. IMPRESSION: Global encephalopathy, cognitive impairment. I do not see evidence of increased intracranial pressure. is adamant that she had absolutely no cognitive impairment prior to admission. In that setting, I wonder if she might have had hypertensive urgency with cognitive impairment resulting. There is imaging evidence of old ischemic change and several recent small ischemic lesions, but no history to suggest seizure. Since she seems to be stable and possibly slightly improved, I do not have urgent suggestion. I would continue managing blood pressure as you are doing, treat blood sugar aggressively, continue treating for improved renal function, try to continue without sedating medicines (I do not see anything on board now), follow clinically. If is correct and there was not prior cognitive impairment at baseline, we can be hopeful that she will make significant recovery. However, I suspect there was baseline cognitive impairment and that we may therefore see a more protracted course. Thanks for asking Neurology to see Ms. Cadet. cc: MD Sarah Jacobsen III, MD MTDD
[2018-11-04] MEDS: HUMULIN R SUBQ SCH ×5 (02:55→16:18)
--- NOTE | 2018-11-04 03:53 | PROGRESS NOTE ---
DATE: 11/03/2018 SUBJECTIVE: The patient is resting comfortably in bed. She does have periods of confusion. OBJECTIVE: Vital Signs: Temperature 98.6 degrees, blood pressure 196/85, heart rate 88, respirations 16, O2 saturation 95% on room air. General: This is a chronically ill-appearing, elderly female, sitting up in bed in no acute distress. Head: Normocephalic, atraumatic. Heart: S1, S2, normal. Regular rate and rhythm. Lungs: Clear to auscultation bilaterally. No wheezing. No rales. No rhonchi. Abdomen: Positive bowel sounds. Soft, nontender, nondistended. Extremities: Trace pedal edema. Neurologic: The patient is oriented to person and place. She is able to move all 4 extremities. LABS: White blood cell count 9.6, hemoglobin 11, hematocrit 33, platelets 210,000. Sodium 142, potassium 3.5, chloride 104, CO2 20, BUN 42, creatinine 1.5, glucose 128, AST 36, ALT 7, alkaline phosphatase 113, total protein 6. ASSESSMENT AND PLAN: 1. Acute cerebrovascular accident. The patient is on aspirin. Will also add Lipitor. Neurology has been consulted. Will also consult Occupational Therapy. 2. Accelerated hypertension. Given the patient's new stroke, will continue on the current antihypertensive regimen. Cardiology is also following. 3. Acute kidney injury, slowly improving. Management as per the recreation aide. 4. Status post open Simba patch repair of a perforated duodenal ulcer. Management as per the general surgeon. 5. Disposition. Physical Therapy and Occupational Therapy have been consulted. cc: MD Sarah Sorto MD
[2018-11-04] MEDS: NEXIUM PO SCH (06:19)
--- NOTE | 2018-11-04 06:30 | Diag Imaging Result Doc PS360 ---
EXAM: CHEST-PORTABLE HISTORY: respiratory failure TECHNIQUE: Portable chest single view COMPARISON: 11/03/2018 FINDINGS: Poor inspiratory effort. The heart is enlarged. Mild vascular distention. No pleural effusions identified. IMPRESSION: Stable chest Electronically signed by Jose Anderson 11/04/2018 6:28 AM
[2018-11-04 07:36] LABS: HEMATOCRIT 31.7 % (37.0-47.0); HEMOGLOBIN 10.6 g/dL (12.0-16.0); MCH 32.9 PG (27-31); MCHC 33.4 g/dL (33-37); MCV 98.4 FL (81-99); MPV 11.1 FL (7.4-10.4); RBC 3.22 XMIL (4.2-5.4); RDW 13.8 % (11.5-14.5); WBC 10.38 X1000 (4.8-10.8)
--- NOTE | 2018-11-04 07:51 | EKG Report ---
Test Performed on : 11/03/2018 4:15:58 PM Test Reason : AMS Blood Pressure : / mmHG Vent. Rate : 078 BPM Atrial Rate : 078 BPM P-R Int : 150 ms QRS Dur : 092 ms QT Int : 388 ms P-R-T Axes : 025 006 100 degrees QTc Int : 442 ms Sinus rhythm. with occasional premature ventricular complexes. T wave abnormality, consider lateral ischemia Abnormal ECG No previous ECGs available Confirmed by Patric Fam MD ([id number]) on 11/07/2018 11:17:18 AM
[2018-11-04 07:57] LABS: CHOLESTEROL 83 mg/dL (0-200); HDL 15 mg/dL (45-65); LDL 27 mg/dL; TRIGLYCERIDES 204 mg/dL (35-135); VLDL 41 mg/dL
[2018-11-04 08:04] LABS: ALBUMIN 4.1 g/dL (3.5-5.0); CREATININE 1.3 mg/dL (0.5-0.9); PHOSPHORUS 2.5 mg/dL (2.7-4.5); POTASSIUM 3.3 mmol/L (3.5-5.1)
[2018-11-04] MEDS: ASPIRIN EC PO SCH (08:07)
[2018-11-04] MEDS: NORVASC PO SCH ×2 (08:10→21:00)
[2018-11-04] MEDS: LASIX IV SCH (08:11)
[2018-11-04] MEDS: LOVENOX SUBQ SCH (08:11)
--- NOTE | 2018-11-04 08:11 | PULMONOLOGY PROGRESS NOTE ---
DATE: 11/03/2018 SUBJECTIVE: The patient is awake, alert, and conversant. She is without specific complaints. Her hypertensive medicines have been adjusted. OBJECTIVE: Vital Signs: The patient has been afebrile for the last 24 hours. Blood pressure 176/77, heart rate 82, respiratory rate 16, oxygen saturation 98% on room air. HEENT: Pupils are equal and reactive. Oropharynx is clear. Neck: Supple. Chest: Good air entry bilaterally. Cardiac: S1, S2. Abdomen: Soft without hepatosplenomegaly. Extremities: Without edema. IMAGING AND LABORATORY DATA: Sodium 142, potassium 3.5, chloride 104, bicarbonate 20, BUN 42, creatinine 1.5, glucose 128. CT scan of the brain last evening: Chronic ischemic changes with old infarcts. MRI today reveals evidence of chronic vascular disease, along with numerous areas of restricted diffusion on the insula on the right and on the internal capsule on the left, the corpus callosum on the right and the parietal cortex on the left. Radiologist indicates that these abnormalities suggest a shower of emboli, consistent with acute or subacute lacunar infarctions. IMPRESSION: A 72-year-old with: 1. Acute hypoxemic respiratory failure. 2. Acute renal failure. 3. Peritonitis, status post repair of a perforated duodenal ulcer. 4. Hypertension. 5. Abnormal MRI of the brain. DISCUSSION: A 72-year-old with the problems outlined above. Although these may represent a shower of emboli, I suspect that what is being seen on an MRI is a result of global hypoperfusion associated with her septic shock earlier in her presentation. She will need ongoing blood pressure control. PLAN: 1. Continue blood pressure control as outlined by the hospitalist team. 2. Advance diet as tolerated. 3. Reinforced the importance of identifying a primary care physician and appropriate blood pressure control when she is discharged from the hospital. 4. Anticipate need for discharge to rehabilitation. cc: MD Sarah Judd MD
--- NOTE | 2018-11-04 08:22 | ECHO REPORT ---
ORDER DATE: 11/03/2018 INTERPRETING PHYSICIAN: Otoniel Torres MD. CLINICAL INDICATIONS: Stroke, hypertension. M-MODE MEASUREMENTS: Left ventricle end diastole: 5.2 cm. Left ventricle end systole: 2.2 cm. Posterior wall: 0.8 cm. Interventricular septum: 0.9 cm. Left atrium: 3.7 cm. Aortic root: 3.4 cm. SUMMARY OF 2-DIMENSIONAL IMAGIN. The left ventricular function is normal. Ejection fraction is estimated to be in the order of 60% to 65%. Optison was added to optimize visualization of endocardium. I do not see any evidence of wall motion abnormality. There is no LVH. 2. The aortic valve has 3 cusps, they open normally. Color flow mapping unremarkable. 3. The mitral valve looks normal. Color flow mapping indicates very trivial degree of regurgitation. 4. The pulse wave Doppler of mitral inflow shows minimal reversal of the E/A ratio, ratio is 0.9. 5. The tissue Doppler of septal and lateral mitral annulus is normal averaging 9 cm. 6. There is no diastolic dysfunction. 7. The tricuspid valve looks normal. Color flow mapping unremarkable.. 8. Pulmonary pressure appears to be within normal range. 9. I did not see the inferior vena cava in this study to comment on right atrial pressure. 10.There is a permanent pericardial fat or epicardial fat pad. Clinical correlation is recommended. cc: MD Opal Bauman CRNP Lynn R. Buckner, MD
--- NOTE | 2018-11-04 11:42 | PROGRESS NOTE ---
DATE: 11/04/2018 Ms. Cadet looks about the same clinically. She continues awake and alert, bright, mostly attentive and cheerful, still not completely oriented. I do not find any definite focal motor deficit on brief bedside testing. She did move her legs a little more vigorously today with apparently less abdominal pain. I do not have any new thought or new suggestion today. I hope she will continue to improve with time. Thanks for asking Neurology to see Ms. Cadet. cc: MD Sarah Jacobsen III, MD
[2018-11-04] MEDS ORDERED: POTASSIUM PHOSPHATE 30 MMOL in NS 250 ML IV ONE (12:54)
--- NOTE | 2018-11-04 17:00 | PROGRESS NOTE ---
DATE: 11/04/2018 SUBJECTIVE: Ms. Cadet has had multiple studies over the last 24 hours including MRI of the brain. She has also had an echo of her heart. She has also had problems with hypertension postoperatively. There is a question whether she has had an ischemic stroke but there is no focal deficits on neurologic exam. Her echo appears to be normal. She is doing well from a Simba patch closure of a perforated ulcer. She needs to take Nexium 40 mg daily. Her upper midline incision is healing well. She is tolerating a diet. Physical Therapy is working with her. OBJECTIVE: Her heart rate is 86, blood pressure 175/80, O2 saturation 97%, T-max is 99.4 degrees. LABORATORY: White blood cell count is normal. Hematocrit is stable at 32%. BUN and creatinine are 36 and 1.3; those continue to improve postoperatively. Her chest x-ray is mostly clear. She has received Lasix the last several days. PLAN: Physical Therapy is working with her to increase her strength and activity. As far as her surgical Simba patch repair, she can be discharged. Plans are probably for rehab at discharge. She needs Nexium daily. cc: Sarah Slater MD
--- NOTE | 2018-11-04 20:47 | PROGRESS NOTE ---
DATE: 11/04/2018 SUBJECTIVE: The patient is resting comfortably. She is more awake and alert today. OBJECTIVE: Vital Signs: Temperature 99.9 degrees, blood pressure 170/79, heart rate 89, respirations 22. O2 sats 97% on room air. General: This is a chronically ill- appearing elderly female lying in bed in no acute distress. Heart: S1, S2 normal. Regular rate and rhythm. Lungs: Equal air entry bilaterally. No crackles. No rales. Abdomen: Positive bowel sounds. Soft, nontender, nondistended. Extremities: No edema, no cyanosis. No calf tenderness. Neurologic: The patient is alert and oriented x 3. No focal neurologic deficits noted. LABS: Hemoglobin 10, hematocrit 31, platelets 215,000. Sodium 140, potassium 3.3, chloride 100, CO2 23, BUN 36, creatinine 1.3, glucose 113, phosphorus 2.5. Chest x-ray shows mild vascular distention. ASSESSMENT AND PLAN: 1. Global encephalopathy versus possible CVA. Will continue to monitor the patient's mental status closely for improvement. The patient is on aspirin and Lipitor at this time. 2. Accelerated hypertension. Improved. Continue on the current antihypertensive regimen. 3. Status post open Simba patch repair of a perforated duodenal ulcer. Stable. General Surgery is following. 4. Acute kidney injury. Improved. We will avoid nephrotoxic agents and monitor the patient's urine output closely. 5. Anemia. Stable. 6. Hypokalemia. Will replace the patient's potassium. 7. Hypophosphatemia. Will replace patient's phosphorus. 8. Mild volume overload. The patient is currently on diuretic therapy management as per the otr company truck driver. 9. DVT prophylaxis. Continue on Lovenox. 10. Disposition. The patient is interested in inpatient rehab placement. Group Counselor is working on placement for the patient. cc: MD Sarah Sorto MD [facility]
[2018-11-04] MEDS: LIPITOR PO SCH (21:01)
[2018-11-05] MEDS: HUMULIN R SUBQ SCH ×5 (04:06→12:37)
[2018-11-05] MEDS: NEXIUM PO SCH ×2 (06:33→07:49)
[2018-11-05 07:35] LABS: HEMOGLOBIN 10.1 g/dL (12.0-16.0); MCH 33.4 PG (27-31); MCHC 33.7 g/dL (33-37); MCV 99.3 FL (81-99); MPV 11.2 FL (7.4-10.4); RBC 3.02 XMIL (4.2-5.4); RDW 13.5 % (11.5-14.5); WBC 10.26 X1000 (4.8-10.8)
[2018-11-05 07:47] LABS: ALBUMIN 3.7 g/dL (3.5-5.0); CALCIUM 8.5 mg/dL (8.8-10.2); CREATININE 1.4 mg/dL (0.5-0.9); PHOSPHORUS 3.5 mg/dL (2.7-4.5); POTASSIUM 2.6 mmol/L (3.5-5.1)
[2018-11-05] MEDS: ASPIRIN EC PO SCH (09:18)
[2018-11-05] MEDS: NORVASC PO SCH (09:18)
[2018-11-05] MEDS: LOVENOX SUBQ SCH (09:20)
[2018-11-05] MEDS: LASIX IV SCH (09:20)
[2018-11-05] MEDS ORDERED: KLOR-CON PO ONE (09:45)
[2018-11-05] MEDS ORDERED: MAGNESIUM SULFATE 4 GM/S.W.I. 4 GM/100 ML IVPB IV ONE (09:45)
[2018-11-05 11:40] VITALS: BP 169/76
--- NOTE | 2018-11-05 13:02 | DISCHARGE SUMMARY ---
ADMISSION DATE: 10/27/2018 DISCHARGE DATE: 11/05/2018 ADMITTING DIAGNOSIS: Acute abdomen, with acute renal failure. POSTOPERATIVE DIAGNOSES: 1. Perforated anterior duodenal ulcer. 2. Acute renal failure, resolved. 3. Hypertension. 4. Ischemic stroke. PRINCIPLE PROCEDURE: Open Simba patch closure of perforated duodenal ulcer on 10/27/[address] Slater. DISCHARGE DIET: Regular. DISCHARGE DISPOSITION: She is going to rehab before going back to her home. DISCHARGE MEDICATIONS: She needs to be on Nexium daily because of her duodenal ulcer. She has been placed on antihypertensives per our hospitalist which include Norvasc 2.5 mg p.o. b.i.d. She has also been placed on Lipitor 40 mg p.o. at bedtime and aspirin 325 mg p.o. daily. She is on Nexium 40 mg daily. DISCHARGE DISABILITIES: Full. HOSPITAL COURSE: Ms. Sandi Cadet is a 72-year-old black female who presented to [facility] Emergency Department with an acute abdomen. As part of her evaluation, she underwent a CT scan of her abdomen and pelvis which suggested free air. She was transferred from [facility] to the operating room holding area of [facility] and urgently went to the operating room, where she underwent open exploration with Simba patch closure of a perforated anterior duodenal ulcer. At the time of surgery we took time to thoroughly irrigate out the abdomen which had gross contamination within it. After surgery, she remained intubated and was sent to the ICU and Dr. Kishan Engle, our critical care physician, was consulted. She was also in acute renal failure and Nephrology was consulted. After several days on the ventilator she was extubated and transferred to the floor. Her acute renal failure resolved without dialysis. On the floor she had an elevated blood pressure. There is a question of whether she had a stroke and she was evaluated with a head CT scan and a brain MRI which suggested multiple ischemic stroke. She was seen by Neurology, but at the time of discharge she had no focal deficits and appeared to be alert and oriented. She also had Cardiology see her, and an echocardiogram performed to try to explore the reason of her stroke. The hospitalists also helped manage her medically. On discharge we felt she should go to rehab. She remains weak. Physical Therapy has been working with her. She is tolerating a diet. She is having bowel activity. Her upper midline incision is healing without evidence of infection. She is awake and alert. Her heart rate is 80, blood pressure 181/76, O2 saturation 98%. She is afebrile. Her weight is 134 pounds. Her white blood cell count was normal, hematocrit 30%. BUN and creatinine are 33 and 1.4. She has had to have her potassium repleted. She has received Lasix for several days. PLAN: She will be sent to rehab for further treatment. I want her to stay on Nexium. I am going to count on the hospitalist to choose her antihypertensives and any other medications she may need. She will followup with me, after she is discharged from rehab. She needs her skin clips to remain in her upper midline incision for at least another week. She knows to contact me with any problems. cc: Sarah Slater MD
--- NOTE | 2018-11-05 20:06 | PROGRESS NOTE ---
DATE: 11/05/2018 Ms. Cadet is awake, alert, attentive. She is appropriate today. She seems a little bit brighter. She answered questions regarding orientation much more quickly, consistently and correctly today, but still is not completely oriented. She missed the month. I do not see anything new going on from Neurology standpoint. There is imaging evidence of small acute infarctions, but I am not sure that explains her recent difficulty. I still suspect a baseline cognitive impairment, but I do not have confirmation of that from family. I am optimistic she will continue to improve with current management. I do not have suggestions for any changes today. She had transient significant blood pressure elevation, which may have triggered her encephalopathy. Thanks for asking Neurology to see Ms. Cadet. cc: MD Sarah Jacobsen III, MD MTDD
--- NOTE | 2018-11-07 15:31 | Carotid Study ---
DATE: 11/03/2018 PROCEDURE: Carotid imaging study. REFERRING PHYSICIAN: Dr. Celine Tsai. INTERPRETING PHYSICIAN: Dr. Carlos Daley. TECH: Cyndi. INDICATIONS: Hypertension and possible stroke. OBSERVED DATA RIGHT LEFT Brachial Blood Pressure Carotid Pulse Bruits: Carotid/Sub DIAGRAM OF ULTRASOUND IMAGING R L RIGHT INT EXT INT EXT LEFT Roberto (cm/s) Roberto (cm/s) Subclavian Subclavian CCA Proximal CCA Proximal CCA Distal CCA Distal Bulb Bulb ICA Proximal ICA Proximal ICA Mid ICA Mid ICA Distal ICA Distal ECA ECA Vertebral Vertebral ICA/CCA Ratio 1.0 ICA/CCA Ratio 0.4 % Stenosis 0-39% % Stenosis 0-39% FINDINGS: The vessels are noted to be tortuous. Low density areas are noted on both lobes of the thyroid. PHYSICIAN INTERPRETATION: No significant stenosis in either carotids. Both carotid vessels are tortuous. Low density areas noted in both lobes of the thyroid. cc: MD Vicenta Cortes PA Lynn R. Buckner, MD
== END 2018-11-05 14:40 | DRG 853 ==
LOC: OPS 10:25 → P.ED 10:25 → SUATTDRO 10:50 → SURHOLD 10:50 → ICU 16:13 → 4N 11-01 14:11
PROVIDERS: ADMIT Surgery; ATTEND Internal Medicine
CPT/HCPCS: 70450; 70551; 71010; 71045; 71250; 74176; 80048; 80053; 80061; 80069; 81001; 82150; 82550; 82565; 82805; 82948; 83690; 83735; 84100; 84132; 84484; 85025; 85027; 85610; 85730; 86850; 86900; 86901; 87040; 87070; 87205; 93005; 93010; 93306; 93880; 94003; 94761; 94799; 96361; 96365; 96375; 97110; 97162; 97165; 97530; 99285; 99291; A9270; C8929; J0131; J0330; J0360; J0690; J1040; J1170; J1650; J1940; J2185; J2270; J2405; J2543; J3010; J3475; J7030; J7040; J7050; J7120; P9047; Q9957; XXXXX